=== PATIENT | male | born 1950 | race American Indian/Alaskan Native ===

== ENCOUNTER 2016-10-22 12:33 | Inpatient (IN) | payer MEDICARE ==
[2016-10-22] MEDS ORDERED: NACL 0.9% 1000 ML 1,000 ML IV ONE ×2 (13:47→18:40)
[2016-10-22] MEDS ORDERED: TYLENOL PO STA (13:47)
--- NOTE | 2016-10-22 14:23 | XRay Report ---
AP CHEST: HISTORY: Sepsis The lungs are hyperinflated but clear. No pleural effusion or pneumothorax. Heart and mediastinal structures are within normal limits. A left [id number] terminates in the superior SVC. IMPRESSION: Hyperinflation. No acute process.
[2016-10-22 15:15] LABS: Bacteria,Urine 2+ /HPF (Negative); Bilirubin,Urine NEG (Negative); Blood,Urine MOD (Negative); Ketones,Urine NEG (Negative); Leukocyte Esterase,Urine MOD (Negative); Mucus,Urine FEW /HPF; Nitrite,Urine POS (Negative); Protein,Urine <15 mg/dL mg/dL (Negative)
[2016-10-22 15:47] LABS: Hematocrit 28.1 % (35.5-45.6); Hemoglobin 9.3 gm/dl (11.8-15.2); Mean Corpuscular HGB Conc 33 % (32-34); Mean Corpuscular Hemoglobin 29 pg (28-32); Mean Corpuscular Volume 87 fl (84-94); Platelet Count 414 K/mm3 (140-440); Red Blood Count 3.23 M/mm3 (3.65-5.03); Red Cell Distribution Width 17.7 % (13.2-15.2)
--- NOTE | 2016-10-22 15:47 | Emergency Department Report ---
HPI - General Chief Complaint: Fever Time Seen by Provider: 10/22/16 15:24 - HPI HPI: Room 8 The patient is a 66-year-old male presenting with a chief complaint of "wasn't doing well at home." When asked what made the patient come to the emergency department the patient gives multiple vague complaints which include trouble eating food and having a poor appetite. Patient states food padilla is mild and stings his tongue when he eats. The patient states his loss approximate 14 pounds in one month. Patient denies shortness of breath but admits to a cough that has been present for several months. The patient states cough is productive of clear sputum. The patient was seen by his primary physician last week and started on amoxicillin (patient is unaware of the specific diagnosis given). The patient has a history of leukemia is currently on chemotherapy stating his last round of chemotherapy occurred in August. Patient denies chest pain, abdominal pain, headache, nausea/vomiting, dysuria or hematuria. The patient lives at home with his Location: [see above] Duration: [see above] Quality: [see above] Severity: [see above] Modifying factors: [see above] Context: [see above] Mode of transportation: [not driving] ED Past Medical Hx - Past Medical History Previous Medical History?: Yes Hx Hypertension: Yes (took beta ceasar today; compliant) Additional medical history: leukemia (on chemotherapy) - Surgical History Past Surgical History?: Yes Additional Surgical History: BACK X 3 - Family History Family history: no significant - Social History Smoking Status: Current Every Day Smoker (approximately one pack per day) Substance Use Type: None - Medications Home Medications: Home Medications Medication Instructions Recorded Confirmed Last Taken Type Carvedilol 12.5 mg PO BID 05/28/13 10/22/16 12/28/14 History Finasteride 5 mg PO DAILY 05/28/13 10/22/16 12/27/14 History amLODIPine [Norvasc] 5 mg PO DAILY 05/28/13 10/22/16 12/28/14 History fluPHENAZine (NF) [Prolixin (Nf)] 5 mg PO BID 05/28/13 10/22/16 12/27/14 History Tamsulosin [Flomax] 0.4 mg PO QDAY #30 cap 05/31/16 10/22/16 Unknown Rx Oxycodone HCl/Acetaminophen 1 each PO Q4H PRN 10/22/16 10/22/16 Unknown History [Percocet 10/325 mg] hydrALAZINE [Apresoline] 50 mg PO BID 10/22/16 10/22/16 Unknown History ED Review of Systems ROS: Stated complaint: SEPSIS Other details as noted in HPI Comment: All other systems reviewed and negative Constitutional: fever, other (weight loss) Eyes: denies: eye pain, eye discharge, vision change ENT: other (rhinorrhea) Respiratory: cough Cardiovascular: denies: chest pain, palpitations Endocrine: no symptoms reported Gastrointestinal: denies: abdominal pain, nausea, diarrhea Genitourinary: denies: urgency, dysuria Musculoskeletal: denies: back pain, joint swelling, arthralgia Skin: denies: rash, lesions Neurological: denies: headache, weakness, paresthesias Psychiatric: denies: anxiety, depression Physical Exam - Physical Exam Vital Signs: Vital Signs 10/22/16 10/22/16 10/22/16 13:39 14:17 14:20 Temperature 102.5 F H Pulse Rate 105 H 103 H 105 H Respiratory 20 10 L 16 Rate Blood Pressure 159/97 127/83 O2 Sat by Pulse 98 97 Oximetry 10/22/16 14:30 Temperature 102.5 F H Pulse Rate Respiratory Rate Blood Pressure O2 Sat by Pulse Oximetry Physical Exam: GENERAL: The patient is well-developed well-nourished thin male lying on stretcher not appearing to be in acute distress. [] HEENT: Normocephalic. Atraumatic. Extraocular motions are intact. Patient has moist mucous membranes. Thrush present NECK: Supple. Trachea midline CHEST/LUNGS: Clear to auscultation. There is no respiratory distress noted. HEART/CARDIOVASCULAR: Regular. There is no tachycardia. There is no gallop rub or murmur. ABDOMEN: Abdomen is soft, nontender. Patient has normal bowel sounds. There is no abdominal distention. SKIN: There are blisters to the lateral aspect of the right lower extremity. The most distal blister has been ruptured [place] proximal to are still intact. There is no underlying erythema or evidence of cellulitis. There is no diaphoresis. NEURO: The patient is awake, alert, and oriented. The patient is cooperative. The patient has normal speech MUSCULOSKELETAL: There is no evidence of acute injury. ED Course Vital Signs 10/22/16 10/22/16 10/22/16 13:39 14:17 14:20 Temperature 102.5 F H Pulse Rate 105 H 103 H 105 H Respiratory 20 10 L 16 Rate Blood Pressure 159/97 127/83 O2 Sat by Pulse 98 97 Oximetry 10/22/16 14:30 Temperature 102.5 F H Pulse Rate Respiratory Rate Blood Pressure O2 Sat by Pulse Oximetry ED Medical Decision Making - Lab Data Result diagrams: 10/22/16 15:23 10/22/16 15:23 Laboratory Tests 10/22/16 10/22/16 10/22/16 15:00 15:23 15:23 WBC 2.3 L RBC 3.23 L Hgb 9.3 L Hct 28.1 L MCV 87 MCH 29 MCHC 33 RDW 17.7 H Plt Count 414 Add Manual Diff Complete Total Counted 100 Seg Neuts % (Manual) 71.0 H Band Neutrophils % 0 Lymphocytes % (Manual) 17.0 Reactive Lymphs % (Man) 0 Monocytes % (Manual) 12.0 H Eosinophils % (Manual) 0 Basophils % (Manual) 0 Metamyelocytes % 0 Myelocytes % 0 Promyelocytes % 0 Blast Cells % 0 Nucleated RBC % Not Reportable Seg Neutrophils # Man 1.6 L Band Neutrophils # 0.0 Lymphocytes # (Manual) 0.4 L Abs React Lymphs (Man) 0.0 Monocytes # (Manual) 0.3 Eosinophils # (Manual) 0.0 Basophils # (Manual) 0.0 Metamyelocytes # 0.0 Myelocytes # 0.0 Promyelocytes # 0.0 Blast Cells # 0.0 WBC Morphology Not Reportable Hypersegmented Neuts Not Reportable Hyposegmented Neuts Not Reportable Hypogranular Neuts Not Reportable Smudge Cells Not Reportable Toxic Granulation Not Reportable Toxic Vacuolation Not Reportable Dohle Bodies Not Reportable Pelger-Huet Anomaly Not Reportable J Luis Rods Not Reportable Platelet Estimate Consistent w auto Clumped Platelets Not Reportable Plt Clumps, EDTA Not Reportable Large Platelets 1+ Giant Platelets Rare Platelet Satelliting Not Reportable Plt Morphology Comment Not Reportable RBC Morphology Not Reportable Dimorphic RBCs Not Reportable Polychromasia Not Reportable Hypochromasia Not Reportable Poikilocytosis Not Reportable Anisocytosis 3+ Microcytosis Not Reportable Macrocytosis Not Reportable Spherocytes Not Reportable Pappenheimer Bodies Not Reportable Sickle Cells Not Reportable Target Cells Rare Tear Drop Cells Not Reportable Ovalocytes Few Helmet Cells Not Reportable [place] Bodies Not Reportable [place] Rings Not Reportable Sean Cells Not Reportable Bite Cells Not Reportable Crenated Cell Not Reportable Elliptocytes Not Reportable Acanthocytes (Spur) Not Reportable Rouleaux Not Reportable Hemoglobin C Crystals Not Reportable Schistocytes Rare Malaria parasites Not Reportable Vincent Bodies Not Reportable Hem Pathologist Commnt No PT INR VBG pH Sodium 134 L Potassium 3.7 Chloride 96.3 L Carbon Dioxide 26 Anion Gap 15 BUN 9 Creatinine 0.7 L Estimated GFR > 60 BUN/Creatinine Ratio 12.85 Glucose 96 Lactic Acid Calcium 7.9 L Total Bilirubin 0.6 AST 71 H ALT 55 Alkaline Phosphatase 68 Total Protein 5.3 L Albumin 2.6 L Albumin/Globulin Ratio 1.0 Urine Color Yellow Urine Turbidity Clear Urine pH 7.0 Ur Specific [place] 1.010 Urine Protein <15 mg/dl Urine Glucose (UA) Neg Urine Ketones Neg Urine Blood Mod Urine Nitrite Pos Urine Bilirubin Neg Urine Urobilinogen 2.0 Ur Leukocyte Esterase Mod Urine WBC (Auto) 15.0 H Urine RBC (Auto) 1.0 U Epithel Cells (Auto) < 1.0 Urine Bacteria (Auto) 2+ Urine Mucus Few 10/22/16 10/22/16 10/22/16 15:23 15:32 15:32 WBC RBC Hgb Hct MCV MCH MCHC RDW Plt Count Add Manual Diff Total Counted Seg Neuts % (Manual) Band Neutrophils % Lymphocytes % (Manual) Reactive Lymphs % (Man) Monocytes % (Manual) Eosinophils % (Manual) Basophils % (Manual) Metamyelocytes % Myelocytes % Promyelocytes % Blast Cells % Nucleated RBC % Seg Neutrophils # Man Band Neutrophils # Lymphocytes # (Manual) Abs React Lymphs (Man) Monocytes # (Manual) Eosinophils # (Manual) Basophils # (Manual) Metamyelocytes # Myelocytes # Promyelocytes # Blast Cells # WBC Morphology Hypersegmented Neuts Hyposegmented Neuts Hypogranular Neuts Smudge Cells Toxic Granulation Toxic Vacuolation Dohle Bodies Pelger-Huet Anomaly J Luis Rods Platelet Estimate Clumped Platelets Plt Clumps, EDTA Large Platelets Giant Platelets Platelet Satelliting Plt Morphology Comment RBC Morphology Dimorphic RBCs Polychromasia Hypochromasia Poikilocytosis Anisocytosis Microcytosis Macrocytosis Spherocytes Pappenheimer Bodies Sickle Cells Target Cells Tear Drop Cells Ovalocytes Helmet Cells [place] Bodies [place] Rings Sean Cells Bite Cells Crenated Cell Elliptocytes Acanthocytes (Spur) Rouleaux Hemoglobin C Crystals Schistocytes Malaria parasites Vincent Bodies Hem Pathologist Commnt PT 14.1 INR 1.10 VBG pH 7.417 Sodium Potassium Chloride Carbon Dioxide Anion Gap BUN Creatinine Estimated GFR BUN/Creatinine Ratio Glucose Lactic Acid 1.0 Calcium Total Bilirubin AST ALT Alkaline Phosphatase Total Protein Albumin Albumin/Globulin Ratio Urine Color Urine Turbidity Urine pH Ur Specific [place] Urine Protein Urine Glucose (UA) Urine Ketones Urine Blood Urine Nitrite Urine Bilirubin Urine Urobilinogen Ur Leukocyte Esterase Urine WBC (Auto) Urine RBC (Auto) U Epithel Cells (Auto) Urine Bacteria (Auto) Urine Mucus - EKG Data -: EKG Interpreted by Me EKG shows normal: sinus rhythm Rate: normal - EKG Data When compared to previous EKG there are: previous EKG unavailable - Radiology Data Radiology results: image reviewed (chest x-ray) interpreted by me: Chest x-ray-no focal infiltrates, no pneumothorax - Differential Diagnosis neutropenic fever, pneumonia, influenza, UTI Critical care attestation.: If time is entered above; I have spent that time in minutes in the direct care of this critically ill patient, excluding procedure time. ED Disposition Clinical Impression: Leukopenia, Fever, Oral candidiasis, UTI (urinary tract infection) Disposition: OP ADMITTED IP TO THIS HOSP Is pt being admited?: Yes Does the pt Need Aspirin: Yes Condition: Serious Referrals: PRIMARY CARE, [Primary Care Provider] - 3-5 Days Time of Disposition: 16:45 (hospitalist paged)
[2016-10-22 15:48] LABS: White Blood Count 2.3 K/mm3 (4.5-11.0)
[2016-10-22 15:59] LABS: INR 1.1 (0.87-1.13)
--- NOTE | 2016-10-22 16:02 | Admit Criteria Form ---
Admission Criteria Documentation: FEBRILE ILLNESS, WITHOUT FOCAL INFECTION Clinical Indications for Admission to Inpatient Care (Place 'X' for any and all applicable criteria): Admission is indicated for ANY ONE of the following (1)(2)(3): [ ] I. Bacteremia [ ]II. Suspected or identified specific infection requiring hospitalization (eg, meningitis, endocarditis) [ ]III. Hemodynamic instability [ ]IV. Altered mental status [ ]V. Failure or unavailability of outpatient antimicrobial treatment [ ]. Hypoxemia [ ]VII. Seizures [X ]VIII. High-risk febrile neutropenia [ ]IX. Need for parenteral antibiotic in patient who is likely to abuse vascular access device (eg, injection drug user) [A](7) [ ]X. Temperature greater than 104.9 degrees F (40.5 degrees C) (oral) [ ]XI. Inpatient admission required rather than observation care because of ANY ONE of the following: [ ]a) Specific infection identified that is too severe for outpatient treatment or observation care trial [ ]b) Metabolic disorder (eg, hypoglycemia, hyperglycemia, metabolic acidosis) that is severe or persistent [ ]c) Temperature greater than 103.1 degrees F (39.5 degrees C) ( oral) that is not responsive to observation care treatment [ ]d) IV fluid to replace significant ongoing (eg, for over 24 hours) losses (> 3 L/m2 per day) [ ]e) Supplemental oxygen or respiratory treatments for over 24 hours that is performable only in acute inpatient setting [ ]f) Parenteral nutrition regimen need that must be implemented on inpatient basis [ ]g) Strict or protective (eg, laminar flow) isolation [ ]h) Other condition, treatment or monitoring requiring inpatient admission Extended stay beyond goal length of stay may be needed for(1)(3) [ ]a) Sepsis or septic shock(22) [ ]b) Positive blood cultures [ ]c) Insufficient oral intake [ ]d) High-risk febrile neutropenia(29)(30) [ ]e) Continued fever and clinical instability [ ]f) Clinically active comorbid illness (e.g,heart failure, renal failure , diabetes) The original [facility] content created by [facility] has been revised. The portions of the content which have been revised are identified through the use of italic text or in bold, and Jennifer [facility] has neither reviewed nor approved the modified material. All other unmodified content is copyright [facility]. Please see references footnoted in the original [facility] edition 2016 Admission Criteria Met: Yes
[2016-10-22 16:04] LABS: Blood Urea Nitrogen 9 mg/dL (9-20); Carbon Dioxide 26 mmol/L (22-30)
[2016-10-22 16:05] LABS: Alanine Aminotransferase 55 units/L (7-56); Albumin 2.6 g/dL (3.9-5); Alkaline Phosphatase 68 units/L (35-129); BUN/Creatinine Ratio 12.85; Bilirubin,Total 0.6 mg/dL (0.1-1.2); Calcium 7.9 mg/dL (8.4-10.2); Chloride 96.3 mmol/L (98-107); Glucose 96 mg/dL (75-100); Potassium 3.7 mmol/L (3.6-5.0); Sodium 134 mmol/L (137-145); Total Protein 5.3 g/dL (6.3-8.2)
[2016-10-22 16:08] LABS: Anion Gap 15 mmol/L
[2016-10-22 16:33] LABS: Basophils % (Manual) 0 % (0.0-1.8); Blastocytes % (Manual) 0 %; Eosinophils % (Manual) 0 % (0.0-4.3)
[2016-10-22 16:34] LABS: Large Platelets 1+; Platelet Estimate Consistent w Auto
[2016-10-22 16:35] LABS: Giant Platelets Rare
[2016-10-22 16:36] LABS: Anisocytosis 3+; Ovalocytes Few; Schistocytes Rare; Target Cells Rare
[2016-10-22 16:37] LABS: Diff Status Complete
[2016-10-22] MEDS ORDERED: MAXIPIME/NS 2 GM/100 ML 100 ML IV ONE (16:37)
--- NOTE | 2016-10-22 18:28 | History and Physical Report ---
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 He also complains of difficulty swallowing. He he has c/o of bilateral leg swelling and inability to walk. I d/w Dr. Pedersen personally, Last chemotherapy was 08/23/2016 with Bendamustine, Rituxan and he had complete remission. On Sep 20, 2016 his WBC was 3.4 and hgb 12.6 with plt of 419. Patient has a chronic indwelling padgett, review of prior records, 12/28/[address] Lomax 1. Gross hematuria, 2. Right ureter stone, 7 mm. 3. Urethral stricture. Operative procedure: Cystoscopy bilateral retrograde pyelogram, right ureteroscopic, basket stone extraction, double-J stent placement and ureteral dilatation Past History Past Medical History: other (as hpi) Past Surgical History: Other (multiple urologic intervention, left chest wall port ) Medications and Allergies Allergies Allergy/AdvReac Type Severity Reaction Status Date / Time morphine Allergy Shortness Verified 10/22/16 13:39 of Breath nalbuphine HCl [From Nubain] Allergy Shortness Verified 10/22/16 13:39 of Breath PEANUTS Allergy Severe Shortness Uncoded 10/22/16 13:39 of Breath Home Medications Medication Instructions Recorded Confirmed Last Taken Type Carvedilol 12.5 mg PO BID 05/28/13 10/22/16 12/28/14 History Finasteride 5 mg PO DAILY 05/28/13 10/22/16 12/27/14 History amLODIPine [Norvasc] 5 mg PO DAILY 05/28/13 10/22/16 12/28/14 History fluPHENAZine (NF) [Prolixin (Nf)] 5 mg PO BID 05/28/13 10/22/16 12/27/14 History Tamsulosin [Flomax] 0.4 mg PO QDAY #30 cap 05/31/16 10/22/16 Unknown Rx Oxycodone HCl/Acetaminophen 1 each PO Q4H PRN 10/22/16 10/22/16 Unknown History [Percocet 10/325 mg] hydrALAZINE [Apresoline] 50 mg PO BID 10/22/16 10/22/16 Unknown History Review of Systems All systems: negative (as HPI and all other ROS reviewed and negative.) Exam - Physical Exam Narrative exam: GEN: WDWN, NAD, AWAKE, ALERT, ORIENTATED HEENT: NCAT, PERRL, EOMI, OP CLEAR NECK: SUPPLE, NO THYROMEGALY, NO JVD, NO LAD CVS: RRR, NORMAL S1S2 LUNGS/CHEST: CTA B, NORMAL CHEST EXPANSION B, GOOD AIR ENTRY B ABD: SOFT NTND, GBS, NO REBOUND OR GUARDING EXT/SKIN: NO SIGNIFICANT EDEMA OR RASH MSK: FROM X 4 EXTREMITIES NEURO: CN 2-12 GROSSLY INTACT, NO FOCAL DEFICITS PSY: CALM - Constitutional Vitals: Temp Pulse Resp BP Pulse Ox 98.7 F 83 8 L 117/72 93 10/22/16 16:34 10/22/16 17:00 10/22/16 16:00 10/22/16 17:00 10/22/16 17:00 Results - Labs CBC & Chem 7: 10/22/16 15:23 10/22/16 15:23 Labs: Abnormal lab results 10/22/16 10/22/16 10/22/16 Range/Units 15:00 15:23 15:23 WBC 2.3 L (4.5-11.0) K/mm3 RBC 3.23 L (3.65-5.03) M/mm3 Hgb 9.3 L (11.8-15.2) gm/dl Hct 28.1 L (35.5-45.6) % RDW 17.7 H (13.2-15.2) % Seg Neuts % (Manual) 71.0 H (40.0-70.0) % Monocytes % (Manual) 12.0 H (0.0-7.3) % Seg Neutrophils # Man 1.6 L (1.8-7.7) K/mm3 Lymphocytes # (Manual) 0.4 L (1.2-5.4) K/mm3 Sodium 134 L (137-145) mmol/L Chloride 96.3 L (98-107) mmol/L Creatinine 0.7 L (0.8-1.5) mg/dL Calcium 7.9 L (8.4-10.2) mg/dL AST 71 H (5-40) units/L Total Protein 5.3 L (6.3-8.2) g/dL Albumin 2.6 L (3.9-5) g/dL Urine WBC (Auto) 15.0 H (0.0-6.0) /HPF Assessment and Plan Patient is 66 yo man from home with a history of CLL under the care of Dr. Pedersen, last chemotherapy was in August 2016 who presents to [facility] ED with multiple somatic complaints including persistent worsening fevers that started yesterday associated with chills, anorexia. He also complains of difficulty swallowing. He he has c/o of bilateral leg swelling and inability to walk. I d/w Dr. Pedersen personally, Last chemotherapy was 08/23/2016 with Bendamustine, Rituxan and he had complete remission. On Sep 20, 2016 his WBC was 3.4 and hgb 12.6 with plt of 419. Patient has a chronic indwelling padgett, review of prior records, 12/28/[address] Lomax 1. Gross hematuria, 2. Right ureter stone, 7 mm. 3. Urethral stricture. Operative procedure: Cystoscopy bilateral retrograde pyelogram, right ureteroscopic, basket stone extraction, double-J stent placement and ureteral dilatation 1. Sepsis most likely due to UTI with functional abnormalities as above and chronic indwelling Padgett, treat aggressively due to an immune compromised state 2. Leukopenia: Consult hematology oncology Dr. Reyes who is Dr. Pedersen partner 3. Severe protein calorie malnutrition: Dietitian consult 4. Thrush: Diflucan 5. Left chest wall port without obvious signs of infection 6. DVT prophylaxis: Subcutaneous Lovenox 7. GI prophylaxis: Pepcid Full code Disposition: Inpatient care
[2016-10-22] MEDS ORDERED: ZOFRAN IV PRN (18:35)
[2016-10-22] MEDS ORDERED: TYLENOL PO PRN (18:35)
[2016-10-22] MEDS ORDERED: NACL 0.9% 1000 ML 1,000 ML ONE (18:36)
[2016-10-22] MEDS: ROXICODONE PO PRN (19:15)
[2016-10-22] MEDS: PERCOCET 5/325 PO PRN (19:15)
[2016-10-22] MEDS ORDERED: ZOSYN/NS 4.5GM/100ML 100 ML IV ONE (21:29)
[2016-10-22] MEDS: ZOSYN/NS 4.5GM/100ML 100 ML IV SCH (21:30)
[2016-10-23] MEDS: DIFLUCAN/NS 100 MG/50 ML 50 ML IV SCH ×2 (00:17→22:00)
[2016-10-23] MEDS: PERCOCET 5/325 PO PRN ×3 (00:19→21:35)
[2016-10-23] MEDS: ROXICODONE PO PRN ×3 (00:20→21:35)
[2016-10-23] MEDS: NACL 0.9% 1000 ML 1,000 ML IV SCH ×2 (00:38→16:00)
[2016-10-23] MEDS ORDERED: NON-FORMULARY (Oxycodone Hcl/Acetaminophen [Percocet 10/325 Mg] 1 EACH) PO PRN (13:50)
[2016-10-23] MEDS ORDERED: FLUPHENAZINE 5 MG PO SCH (14:00)
[2016-10-23] MEDS: PEPCID PO SCH (14:10)
[2016-10-23] MEDS: ZOSYN/NS 4.5GM/100ML 100 ML IV SCH ×2 (14:10→22:00)
[2016-10-23] MEDS ORDERED: CHLORASEPTIC MM PRN (15:18)
[2016-10-23] MEDS: PROSCAR PO SCH (16:00)
[2016-10-23] MEDS: FLOMAX PO SCH (16:00)
[2016-10-23] MEDS: PROLIXIN HCL PO SCH (16:00)
[2016-10-23] MEDS: COREG PO SCH (17:00)
--- NOTE | 2016-10-23 18:34 | Consultation ---
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 Presented with extensive adenopathy, anemia, and thrombocytopenia, as well as constitutional symptoms of fevers, night sweats, and weight loss. He received 4 cycles of bendamustine and rituximab, latest given on Aug 222015. He did develop some pancytopenia with chemo, but on the other side his adenopathy and thrombocytopenia resolved, and his constitutional symptoms resolved. He now comes with a 2-day history of fevers and leg edema with large fluid blebs, severe generalized weakness, and oral pain. He has had several falls due to weakness. CXR showed on acute infiltrates. Urinalysis shows 15 WBC/HPF, positive nitrites, and positive leukocyte esterase. Patient denies dysuria or hematuria. CBC shows WBC 2.3 with ANC 1.6; platelet count is normal, but hemoglobin is low at 9.3 g/dL. MCV is 87, RDW 17.7%. Chemistries remarkable for creatinine of 0.7 g/dL, calcium 7.9 mg/dL, albumin 2.6 g/dL (corrected calcium level 9.02 mg/dL). AST is elevated at 71 (<2 x ULN). Past History Past Medical History: hypertension, other (Lumbar radiculopathy, DDD, BPH, kidney stones, urethral stricture) Past Surgical History: Other (multiple urologic interventions, cervical spine fusino February 2008, lumbar spine surgey, left chest wall port ) Social history: smoking Family history: cancer (multiple relatives, does not know what type of cancer) Medications and Allergies Allergies Allergy/AdvReac Type Severity Reaction Status Date / Time morphine Allergy Shortness Verified 10/22/16 13:39 of Breath nalbuphine HCl [From Nubain] Allergy Shortness Verified 10/22/16 13:39 of Breath PEANUTS Allergy Severe Shortness Uncoded 10/22/16 13:39 of Breath Home Medications Medication Instructions Recorded Confirmed Last Taken Type Carvedilol 12.5 mg PO BID 05/28/13 10/22/16 12/28/14 History Finasteride 5 mg PO DAILY 05/28/13 10/22/16 12/27/14 History amLODIPine [Norvasc] 5 mg PO DAILY 05/28/13 10/22/16 12/28/14 History fluPHENAZine (NF) [Prolixin (Nf)] 5 mg PO BID 05/28/13 10/22/16 12/27/14 History Tamsulosin [Flomax] 0.4 mg PO QDAY #30 cap 05/31/16 10/22/16 Unknown Rx Oxycodone HCl/Acetaminophen 1 each PO Q4H PRN 10/22/16 10/22/16 Unknown History [Percocet 10/325 mg] hydrALAZINE [Apresoline] 50 mg PO BID 10/22/16 10/22/16 Unknown History Active Meds: Active Medications Acetaminophen (Tylenol) 650 mg PO Q6H PRN PRN Reason: Non Cardiac Pain or Temp>100.5 Carvedilol (Coreg) 12.5 mg PO BID [facility] Last Admin: 10/23/16 17:00 Dose: 12.5 mg Famotidine (Pepcid) 20 mg PO QDAY [facility] Last Admin: 10/23/16 14:10 Dose: Not Given Finasteride (Proscar) 5 mg PO DAILY [facility] Last Admin: 10/23/16 16:00 Dose: 5 mg Fluphenazine HCl (Prolixin Hcl) 5 mg PO BID [facility] Last Admin: 10/23/16 16:00 Dose: 5 mg Piperacillin Sod/Tazobactam Sod (Zosyn/Ns 4.5gm/100ml) 100 mls @ 200 mls/hr IV Q8H [facility] PRN Reason: Protocol Last Admin: 10/23/16 14:10 Dose: Not Given Sodium Chloride (Nacl 0.9% 1000 Ml) 1,000 mls @ 100 mls/hr IV DIRECT [facility] Last Admin: 10/23/16 16:00 Dose: 100 mls/hr Fluconazole (Diflucan/Ns 100 Mg/50 Ml) 50 mls @ 50 mls/hr IV Q24H [facility] Last Admin: 10/23/16 00:17 Dose: 50 mls/hr Oxycodone HCl (Roxicodone) 5 mg PO Q4H PRN PRN Reason: Pain Last Admin: 10/23/16 16:00 Dose: 5 mg Oxycodone/Acetaminophen (Percocet 5/325) 1 tab PO Q4H PRN PRN Reason: Pain, Moderate (4-6) Last Admin: 10/23/16 16:00 Dose: 1 tab Phenol (Chloraseptic) 1 spray MM PRN PRN PRN Reason: Sore Throat Last Admin: 10/23/16 16:10 Dose: 1 spray Tamsulosin HCl (Flomax) 0.4 mg PO QDAY [facility] Last Admin: 10/23/16 16:00 Dose: 0.4 mg Review of Systems All systems: negative Constitutional: fever, anorexia, fatigue, malaise Ears, nose, mouth and throat: dysphagia, other (dry mouth) Cardiovascular: dyspnea on exertion, leg edema (severe, R>L, with large fluid blebs (one has broken)) 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 Absent: scleral icterus ENT: thrush (mild), other (ptosis R eyelid, chronic) - Neck Neck: Present: supple, normal ROM. Absent: masses or JVD - Respiratory Respiratory effort: normal Respiratory: bilateral: CTA - Cardiovascular Rhythm: regular Heart Sounds: Present: S1 & S2. Absent: gallop - Extremities Extremities: no ischemia Extremity abnormal: edema (Large fluid filled blebs in RLE) - Abdominal General gastrointestinal: Present: soft, non-tender, non-distended, normal bowel sounds. Absent: hepatomegaly, splenomegaly - Integumentary Integumentary: Present: warm, dry, rash (multiple excoriations BLE due to falls) - Musculoskeletal Musculoskeletal: generalized weakness - Psychiatric Psychiatric: cooperative Results - Labs CBC & Chem 7: 10/22/16 15:23 10/22/16 15:23 - Imaging and Cardiology Chest x-ray: report reviewed Assessment and Plan - Patient Problems (1) Chronic lymphocytic leukemia (CLL), B-cell Current Visit: Yes Status: Chronic Qualifiers: Leukemia Active/Remission status: in remission Qualified Code(s): C91.11 - Chronic lymphocytic leukemia of B-cell type in remission Plan to address problem: Patient appears to be in remission. No treatment indicated at this time. Recommend outpatient bone marrrow biopsy to assess response to recently completed chemotherapy (2) Fever Current Visit: Yes Status: Acute Qualifiers: Fever type: unspecified Encounter type: E Qualified Code(s): R50.9 - Fever, unspecified Plan to address problem: Most likely due to UTI. R/o immunosupression (hypogammaglobulinemia is frequently seen in CLL). Check IgG level. IVIG if IgG <500 mg/dL. (3) Leukopenia Current Visit: Yes Status: Chronic Qualifiers: Leukopenia type: L Neutropenia type: secondary to cancer chemotherapy Qualified Code(s): D70.1 - Agranulocytosis secondary to cancer chemotherapy Plan to address problem: Patient has mild, stable neutropenia. He does not need growth factors. Prolonged myelosupression is commonly seen with bendamustine. He may also have bone marrow suppression from his phenothiazine agent. Continue monitoring. (4) Oral candidiasis Current Visit: Yes Status: Acute Plan to address problem: Already on fluconazole (5) Anemia Current Visit: Yes Status: Chronic Qualifiers: Anemia type: bone marrow failure Iron deficiency anemia type: I Vitamin B12 deficiency anemia type: V Folate deficiency anemia type: F Bone marrow failure anemia type: pancytopenia, antineoplastic chemotherapy-induced Hemolytic anemia type: H Other causes of anemia: O Qualified Code(s): D61.810 - Antineoplastic chemotherapy induced pancytopenia Plan to address problem: Patient presented with stage IV CLL (anemia and thrombocytopenia) but appears to have achieved hematologic remission. Will check for other causes including anemia of CKD, hemolysis (AIHA can be seen in CLL), and Fe/folate/B12 deficiency. (6) Bilateral lower extremity edema Current Visit: Yes Status: Acute Plan to address problem: I am not clear about the reason for this. His albumin is not so low as to cause anasarca, and his renal function is very good. Consider Echo, cardiology consult.
[2016-10-23 21:40] LABS: Reticulocyte % 1.81 % (0.78-2.58)
[2016-10-23 21:41] LABS: Hematocrit 30.1 % (35.5-45.6); Hemoglobin 9.7 gm/dl (11.8-15.2); Mean Corpuscular HGB Conc 32 % (32-34); Mean Corpuscular Hemoglobin 28 pg (28-32); Mean Corpuscular Volume 88 fl (84-94); Platelet Count 421 K/mm3 (140-440); Red Blood Count 3.41 M/mm3 (3.65-5.03); Red Cell Distribution Width 17.9 % (13.2-15.2); White Blood Count 2.9 K/mm3 (4.5-11.0)
[2016-10-23 22:22] LABS: Anion Gap 21 mmol/L; BUN/Creatinine Ratio 11.42; Blood Urea Nitrogen 8 mg/dL (9-20); Carbon Dioxide 22 mmol/L (22-30); Chloride 98.5 mmol/L (98-107); Glucose 100 mg/dL (75-100); Potassium 3.7 mmol/L (3.6-5.0); Sodium 138 mmol/L (137-145)
[2016-10-23 22:25] LABS: Iron 18 ug/dL (49-181); Total Iron Binding Capacity 163 mcg/dL (250-450)
[2016-10-23] MEDS: HABITROL TD SCH (23:58)
[2016-10-24] MEDS: NACL 0.9% 1000 ML 1,000 ML IV SCH ×2 (00:01→14:56)
[2016-10-24] MEDS: PROLIXIN HCL PO SCH ×3 (00:03→22:04)
[2016-10-24] MEDS: COREG PO SCH ×3 (00:03→22:04)
[2016-10-24] MEDS: ZOSYN/NS 4.5GM/100ML 100 ML IV SCH ×2 (04:16→14:54)
[2016-10-24 07:41] LABS: Hematocrit 26.4 % (35.5-45.6); Hemoglobin 8.8 gm/dl (11.8-15.2); Mean Corpuscular HGB Conc 33 % (32-34); Mean Corpuscular Hemoglobin 28 pg (28-32); Mean Corpuscular Volume 86 fl (84-94); Red Blood Count 3.09 M/mm3 (3.65-5.03); Red Cell Distribution Width 17.8 % (13.2-15.2)
[2016-10-24 07:50] LABS: Platelet Count 410 K/mm3 (140-440)
[2016-10-24 07:51] LABS: White Blood Count 2.1 K/mm3 (4.5-11.0)
[2016-10-24 08:03] LABS: Anion Gap 15 mmol/L; BUN/Creatinine Ratio 8.57; Blood Urea Nitrogen 6 mg/dL (9-20); Calcium 7.8 mg/dL (8.4-10.2); Carbon Dioxide 26 mmol/L (22-30); Chloride 99.6 mmol/L (98-107); Glucose 93 mg/dL (75-100); Potassium 3.9 mmol/L (3.6-5.0); Sodium 137 mmol/L (137-145)
[2016-10-24] MEDS: FLOMAX PO SCH (10:27)
[2016-10-24] MEDS: PEPCID PO SCH (10:28)
[2016-10-24] MEDS: PROSCAR PO SCH (10:29)
--- NOTE | 2016-10-24 11:02 | Progress Note ---
Assessment and Plan Assessment and plan: Complicated urinary tract infection. He has had a Merino catheter in for about 1 week. Continue Zosyn. Urine cultures show Klebsiella pneumonia response to Zosyn. Consulted infectious disease physician Sepsis secondary to urinary tract infection. Continue Zosyn History of CLL. Undergoing treatment by oncologist. Hypertension. Blood pressure stable Oral candidiasis. On Diflucan DVT prophylaxis Full code status Leg ulcer, blisters . Wound care nurse consulted. History Interval history: Feels better Hospitalist Physical - Physical exam Narrative exam: Gen appearance: not in acute distress, HEENT: Normocephalic, atraumatic Neck : supple, no JVD Lungs: Clear to auscultation bilaterally, no crackles, no wheezes. Heart : S1 and S2 regular, no murmurs rubs or gallop, Abdomen: soft non-tender, non-distended, normal bowel sounds Extremities: No edema no clubbing or cyanosis, leg blisters and ulcer Neuro :awake alert oriented, no focal signs Psych :appropriate mood - Constitutional Vitals: Temp Pulse Resp BP Pulse Ox 99.0 F 107 H 20 133/86 98 10/24/16 08:45 10/24/16 08:45 10/24/16 08:45 10/24/16 08:45 10/24/16 08:45 General appearance: Present: mild distress, well-nourished, other (chronically ill looking) Results - Labs CBC & Chem 7: 10/24/16 07:07 10/24/16 07:07 Labs: Laboratory Last Values WBC 2.1 K/mm3 (4.5-11.0) L 10/24/16 07:07 RBC 3.09 M/mm3 (3.65-5.03) L 10/24/16 07:07 Hgb 8.8 gm/dl (11.8-15.2) L 10/24/16 07:07 Hct 26.4 % (35.5-45.6) L 10/24/16 07:07 MCV 86 fl (84-94) 10/24/16 07:07 MCH 28 pg (28-32) 10/24/16 07:07 MCHC 33 % (32-34) 10/24/16 07:07 RDW 17.8 % (13.2-15.2) H 10/24/16 07:07 Plt Count 410 K/mm3 (140-440) 10/24/16 07:07 Add Manual Diff Complete 10/22/16 15:23 Total Counted 100 10/22/16 15:23 Seg Neuts % (Manual) 71.0 % (40.0-70.0) H 10/22/16 15:23 Band Neutrophils % 0 % 10/22/16 15:23 Lymphocytes % (Manual) 17.0 % (13.4-35.0) 10/22/16 15:23 Reactive Lymphs % (Man) 0 % 10/22/16 15:23 Monocytes % (Manual) 12.0 % (0.0-7.3) H 10/22/16 15:23 Eosinophils % (Manual) 0 % (0.0-4.3) 10/22/16 15:23 Basophils % (Manual) 0 % (0.0-1.8) 10/22/16 15:23 Metamyelocytes % 0 % 10/22/16 15:23 Myelocytes % 0 % 10/22/16 15:23 Promyelocytes % 0 % 10/22/16 15:23 Blast Cells % 0 % 10/22/16 15:23 Nucleated RBC % Not Reportable 10/22/16 15:23 Seg Neutrophils # Man 1.6 K/mm3 (1.8-7.7) L 10/22/16 15:23 Band Neutrophils # 0.0 K/mm3 10/22/16 15:23 Lymphocytes # (Manual) 0.4 K/mm3 (1.2-5.4) L 10/22/16 15:23 Abs React Lymphs (Man) 0.0 K/mm3 10/22/16 15:23 Monocytes # (Manual) 0.3 K/mm3 (0.0-0.8) 10/22/16 15:23 Eosinophils # (Manual) 0.0 K/mm3 (0.0-0.4) 10/22/16 15:23 Basophils # (Manual) 0.0 K/mm3 (0.0-0.1) 10/22/16 15:23 Metamyelocytes # 0.0 K/mm3 10/22/16 15:23 Myelocytes # 0.0 K/mm3 10/22/16 15:23 Promyelocytes # 0.0 K/mm3 10/22/16 15:23 Blast Cells # 0.0 K/mm3 10/22/16 15:23 WBC Morphology Not Reportable 10/22/16 15:23 Hypersegmented Neuts Not Reportable 10/22/16 15:23 Hyposegmented Neuts Not Reportable 10/22/16 15:23 Hypogranular Neuts Not Reportable 10/22/16 15:23 Smudge Cells Not Reportable 10/22/16 15:23 Toxic Granulation Not Reportable 10/22/16 15:23 Toxic Vacuolation Not Reportable 10/22/16 15:23 Dohle Bodies Not Reportable 10/22/16 15:23 Pelger-Huet Anomaly Not Reportable 10/22/16 15:23 J Luis Rods Not Reportable 10/22/16 15:23 Platelet Estimate Consistent w auto 10/22/16 15:23 Clumped Platelets Not Reportable 10/22/16 15:23 Plt Clumps, EDTA Not Reportable 10/22/16 15:23 Large Platelets 1+ 10/22/16 15:23 Giant Platelets Rare 10/22/16 15:23 Platelet Satelliting Not Reportable 10/22/16 15:23 Plt Morphology Comment Not Reportable 10/22/16 15:23 RBC Morphology Not Reportable 10/22/16 15:23 Dimorphic RBCs Not Reportable 10/22/16 15:23 Polychromasia Not Reportable 10/22/16 15:23 Hypochromasia Not Reportable 10/22/16 15:23 Poikilocytosis Not Reportable 10/22/16 15:23 Anisocytosis 3+ 10/22/16 15:23 Microcytosis Not Reportable 10/22/16 15:23 Macrocytosis Not Reportable 10/22/16 15:23 Spherocytes Not Reportable 10/22/16 15:23 Pappenheimer Bodies Not Reportable 10/22/16 15:23 Sickle Cells Not Reportable 10/22/16 15:23 Target Cells Rare 10/22/16 15:23 Tear Drop Cells Not Reportable 10/22/16 15:23 Ovalocytes Few 10/22/16 15:23 Helmet Cells Not Reportable 10/22/16 15:23 Arias-Mosheim Bodies Not Reportable 10/22/16 15:23 Shepp[place] Rings Not Reportable 10/22/16 15:23 Sean Cells Not Reportable 10/22/16 15:23 Bite Cells Not Reportable 10/22/16 15:23 Crenated Cell Not Reportable 10/22/16 15:23 Elliptocytes Not Reportable 10/22/16 15:23 Acanthocytes (Spur) Not Reportable 10/22/16 15:23 Rouleaux Not Reportable 10/22/16 15:23 Hemoglobin C Crystals Not Reportable 10/22/16 15:23 Schistocytes Rare 10/22/16 15:23 Malaria parasites Not Reportable 10/22/16 15:23 Percent Retic 1.81 % (0.78-2.58) 10/23/16 21:29 Vincent Bodies Not Reportable 10/22/16 15:23 Hem Pathologist Commnt No 10/22/16 15:23 PT 14.1 Sec. (12.2-14.9) 10/22/16 15:32 INR 1.10 (0.87-1.13) 10/22/16 15:32 VBG pH 7.417 (7.320-7.420) 10/22/16 15:32 Sodium 137 mmol/L (137-145) 10/24/16 07:07 Potassium 3.9 mmol/L (3.6-5.0) 10/24/16 07:07 Chloride 99.6 mmol/L (98-107) 10/24/16 07:07 Carbon Dioxide 26 mmol/L (22-30) 10/24/16 07:07 Anion Gap 15 mmol/L 10/24/16 07:07 BUN 6 mg/dL (9-20) L 10/24/16 07:07 Creatinine 0.7 mg/dL (0.8-1.5) L 10/24/16 07:07 Estimated GFR > 60 ml/min 10/24/16 07:07 BUN/Creatinine Ratio 8.57 % 10/24/16 07:07 Glucose 93 mg/dL (75-100) 10/24/16 07:07 Lactic Acid 1.0 mmol/L (0.7-2.0) 10/22/16 16:41 Calcium 7.8 mg/dL (8.4-10.2) L 10/24/16 07:07 Iron 18 ug/dL (49-181) L 10/23/16 21:29 TIBC 163 mcg/dL (250-450) L 10/23/16 21:29 Ferritin 1321.0 ng/mL (13.0-400.0) H 10/23/16 21:29 Total Bilirubin 0.6 mg/dL (0.1-1.2) 10/22/16 15:23 AST 71 units/L (5-40) H 10/22/16 15:23 ALT 55 units/L (7-56) 10/22/16 15: Alkaline Phosphatase 68 units/L (35-129) 10/22/16 15:23 Total Protein 5.3 g/dL (6.3-8.2) L 10/22/16 15: Albumin 2.6 g/dL (3.9-5) L 10/22/16 15: Albumin/Globulin Ratio 1.0 % 10/22/16 15: Vitamin B12 1098 pg/mL (211-911) H 10/23/16 21: Folate 6.83 ng/mL (7.3-26.0) L 10/23/16 21:29 Urine Color Yellow (Yellow) 10/22/16 15:00 Urine Turbidity Clear (Clear) 10/22/16 15:00 Urine pH 7.0 (5.0-7.0) 10/22/16 15:00 Ur Specific [place] 1.010 (1.003-1.030) 10/22/16 15:00 Urine Protein <15 mg/dl mg/dL (Negative) 10/22/16 15:00 Urine Glucose (UA) Neg mg/dL (Negative) 10/22/16 15:00 Urine Ketones Neg mg/dL (Negative) 10/22/16 15:00 Urine Blood Mod (Negative) 10/22/16 15:00 Urine Nitrite Pos (Negative) 10/22/16 15:00 Urine Bilirubin Neg (Negative) 10/22/16 15:00 Urine Urobilinogen 2.0 mg/dL (<2.0) 10/22/16 15:00 Ur Leukocyte Esterase Mod (Negative) 10/22/16 15:00 Urine WBC (Auto) 15.0 /HPF (0.0-6.0) H 10/22/16 15:00 Urine RBC (Auto) 1.0 /HPF (0.0-6.0) 10/22/16 15:00 U Epithel Cells (Auto) < 1.0 /HPF (0-13.0) 10/22/16 15:00 Urine Bacteria (Auto) 2+ /HPF (Negative) 10/22/16 15:00 Urine Mucus Few /HPF 10/22/16 15:00 Direct Antiglob Test Negative 10/23/16 21:29 ROBBI, Poly Interpret Negative 10/23/16 21:29
--- NOTE | 2016-10-24 12:27 | Consultation ---
History of Present Illness - Reason for Consult Consult date: 10/24/16 UTI - History of Present Illness Mr Gill is a 66 y/o AA male who is followed with a known history of hypertension , CLL on previous chemotherapy, indwelling port, chronic indwelling Merino catheter, and history of ureteral stones who presents for admission to with fever, chills, malaise and anorexia. He is seen with a low-grade fever, an active urinary sediment, urine cultures positive for Klebsiella pneumoniae, and mild neutropenia. The patient is a poor historian. He is followed by Dr. Pedersen with last chemotherapy for CLL ( Bendamustine, Rituxin) given on 08/23/16. He apparently was told that he was in remission. The patient otherwise has an indwelling left chest wall port. is followed by Dr. Lomax with a known history of nephrolithiasis. He underwent, in December 2014, cystoscopy with right ureteral stent placement and right ureteral stone basket extraction. The denies any recent urinary difficulties known to him. As stated he does have a indwelling Merino catheter at home but was uncertain how long this is been in place and how recently it has been changed. Currently he has had low-grade fever in the hospital to 100.8. Admission CBC includes a white count of 2300 with 71% neutrophils. His urine showed 15 WBCs with 1 RBCs. Nitrite was positive with evidence of 2+ bacteriuria. Urine culture is growing a sensitive Klebsiella pneumoniae. Blood cultures are sterile. The patient is now seen for further ID recommendations. Past History Past Medical History: hypertension, other (Lumbar radiculopathy, DDD, BPH, kidney stones, urethral stricture) Past Surgical History: Other (multiple urologic interventions, cervical spine fusino February 2008, lumbar spine surgey, left chest wall port ) Social history: smoking Family history: cancer (multiple relatives, does not know what type of cancer) Medications and Allergies Allergies Allergy/AdvReac Type Severity Reaction Status Date / Time morphine Allergy Shortness Verified 10/22/16 13:39 of Breath nalbuphine HCl [From Nubain] Allergy Shortness Verified 10/22/16 13:39 of Breath PEANUTS Allergy Severe Shortness Uncoded 10/22/16 13:39 of Breath Home Medications Medication Instructions Recorded Confirmed Last Taken Type Carvedilol 12.5 mg PO BID 05/28/13 10/22/1612/28/15 History Finasteride 5 mg PO DAILY 05/28/13 10/22/16 12/27/14 History amLODIPine [Norvasc] 5 mg PO DAILY 05/28/13 10/22/16 12/28/14 History fluPHENAZine (NF) [Prolixin (Nf)] 5 mg PO BID 05/28/13 10/22/16 12/27/14 History Tamsulosin [Flomax] 0.4 mg PO QDAY #30 cap 05/31/16 10/22/16 Unknown Rx Oxycodone HCl/Acetaminophen 1 each PO Q4H PRN 10/22/16 10/22/16 Unknown History [Percocet 10/325 mg] hydrALAZINE [Apresoline] 50 mg PO BID 10/22/16 10/22/16 Unknown History Active Meds: Active Medications Acetaminophen (Tylenol) 650 mg PO Q6H PRN PRN Reason: Non Cardiac Pain or Temp>100.5 Carvedilol (Coreg) 12.5 mg PO BID [facility] Last Admin: 10/24/16 10:27 Dose: 12.5 mg Famotidine (Pepcid) 20 mg PO QDAY [facility] Last Admin: 10/24/16 10:28 Dose: 20 mg Finasteride (Proscar) 5 mg PO DAILY [facility] Last Admin: 10/24/16 10:29 Dose: 5 mg Fluphenazine HCl (Prolixin Hcl) 5 mg PO BID [facility] Last Admin: 10/24/16 10:28 Dose: 5 mg Piperacillin Sod/Tazobactam Sod (Zosyn/Ns 4.5gm/100ml) 100 mls @ 200 mls/hr IV Q8H [facility] PRN Reason: Protocol Last Admin: 10/24/16 04:16 Dose: 200 mls/hr Sodium Chloride (Nacl 0.9% 1000 Ml) 1,000 mls @ 100 mls/hr IV DIRECT [facility] Last Admin: 10/24/16 00:01 Dose: 100 mls/hr Fluconazole (Diflucan/Ns 100 Mg/50 Ml) 50 mls @ 50 mls/hr IV Q24H [facility] Last Admin: 10/23/16 22:00 Dose: 50 mls/hr Nicotine (Habitrol) 21 mg TD Q24H [facility] Last Admin: 10/23/16 23:58 Dose: Not Given Oxycodone HCl (Roxicodone) 5 mg PO Q4H PRN PRN Reason: Pain Last Admin: 10/23/16 21:35 Dose: 5 mg Oxycodone/Acetaminophen (Percocet 5/325) 1 tab PO Q4H PRN PRN Reason: Pain, Moderate (4-6) Last Admin: 10/23/16 21:35 Dose: 1 tab Phenol (Chloraseptic) 1 spray MM PRN PRN PRN Reason: Sore Throat Last Admin: 10/23/16 16:10 Dose: 1 spray Tamsulosin HCl (Flomax) 0.4 mg PO QDAY [facility] Last Admin: 10/24/16 10:27 Dose: 0.4 mg Physical Examination - Physical Exam Narrative exam: Thin male. Chronically ill-appearing. HEENT: Pupils are equal reactive to light and accommodation. Slight periorbital swelling. Conjunctiva clear. Tongue with slight coating. NECK: Supple. No enlargement of the thyroid gland. No significant cervical lymphadenopathy. No jugular venous distention at 30. LUNGS: Clear with no adventitious sounds. HEART: Regular rate. S1 and S2 are normal. Soft systolic murmur along the left sternal border. No diastolic murmur. ABDOMEN: Soft and nontender. Liver and spleen are not palpably enlarged or tender. No palpable masses. Bowel sounds are normoactive. Merino catheter in place. EXTREMITIES: 2 - 3+ swelling of lower extremities bilaterally. Area of denuded right lateral calf skin surface. Stasis distal extremity skin changes. Scabbed ulcers along pretibial leg surfaces bilaterally. SKIN: No other rash, ulcers or wounds. Left chest wall port site is without redness, tenderness or swelling. NEUROLOGIC: No focal findings. - Constitutional Vitals: Vital Signs Temp Pulse Resp BP Pulse Ox 99.0 F 107 H 20 133/86 98 10/24/16 08:45 10/24/16 08:45 10/24/16 08:45 10/24/16 08:45 10/24/16 08:45 Temperature -Last 24 Hours Temperature 99.0 F Temperature 100.8 F Temperature 99.9 F Results - Labs CBC & Chem 7: 10/24/16 07:07 10/24/16 07:07 Labs: Abnormal lab results 10/23/16 10/23/16 10/23/16 Range/Units 21:29 21:29 21:29 WBC 2.9 L (4.5-11.0) K/mm3 RBC 3.41 L (3.65-5.03) M/mm3 Hgb 9.7 L (11.8-15.2) gm/dl Hct 30.1 L (35.5-45.6) % RDW 17.9 H (13.2-15.2) % BUN 8 L (9-20) mg/dL Creatinine 0.7 L (0.8-1.5) mg/dL Calcium 8.0 L (8.4-10.2) mg/dL Iron (49-181) ug/dL TIBC (250-450) mcg/dL Ferritin (13.0-400.0) ng/mL Vitamin B12 1098 H (211-911) pg/mL Folate (7.3-26.0) ng/mL 10/23/16 10/23/16 10/23/16 Range/Units 21:29 21:29 21:29 WBC (4.5-11.0) K/mm3 RBC (3.65-5.03) M/mm3 Hgb (11.8-15.2) gm/dl Hct (35.5-45.6) % RDW (13.2-15.2) % BUN (9-20) mg/dL Creatinine (0.8-1.5) mg/dL Calcium (8.4-10.2) mg/dL Iron 18 L (49-181) ug/dL TIBC 163 L (250-450) mcg/dL Ferritin 1321.0 H (13.0-400.0) ng/mL Vitamin B12 (211-911) pg/mL Folate 6.83 L (7.3-26.0) ng/mL 10/24/16 10/24/16 Range/Units 07:07 07:07 WBC 2.1 L (4.5-11.0) K/mm3 RBC 3.09 L (3.65-5.03) M/mm3 Hgb 8.8 L (11.8-15.2) gm/dl Hct 26.4 L (35.5-45.6) % RDW 17.8 H (13.2-15.2) % BUN 6 L (9-20) mg/dL Creatinine 0.7 L (0.8-1.5) mg/dL Calcium 7.8 L (8.4-10.2) mg/dL Iron (49-181) ug/dL TIBC (250-450) mcg/dL Ferritin (13.0-400.0) ng/mL Vitamin B12 (211-911) pg/mL Folate (7.3-26.0) ng/mL Assessment and Plan Assessment: Mr Gill is a 66 y/o AA male who is followed with a known history of hypertension , CLL on previous chemotherapy, indwelling port, chronic indwelling Merino catheter, and history of ureteral stones who presents for admission to with fever, chills, malaise and anorexia. He is seen with a low-grade fever, an active urinary sediment, urine cultures positive for Klebsiella pneumoniae, and mild neutropenia. Antibiotics: Ceftriaxone 1 g IV daily ( 10/24 -> Fluconazole 100 mg IV/po ( 10/22 - > s/p: Zosyn 4.5 g IV every 8 hour ( 10/22 - 10/24) Conclusions: 1. Klebsiella UTI ( CAUTI) - R/O sepsis - Chronic Merino catheter 2. CLL s/p chemotherapy ( last 08/23/16) - Neutropenia 3. Hx of nephrolithiasis - s/p 12/28/14 cystoscopy with right ureteral stone basket extraction and right ureteral stent placement 4. Chronic lower extremity edema - Multiple superficial ulcers without secondary infection 5. Thrush 6. Anemia- - probably secondary to chronic disease 7. Protein calorie malnutrition Recommendations: -Suggest therapy with IV ceftriaxone 1 g daily. Zosyn stopped. -Continue by mouth fluconazole for thrush - Follow WBC numbers - Bilateral renal ultrasound ordered looking for any evidence of hydronephrosis or upper tract disease. - ? Need for chronic Merino - If patient otherwise remained stable he could be treated on oral antibiotics at home. Would complete 7 day course of antibiotics as long as blood cultures remained sterile. - Medical therapies as per Hospitalist
[2016-10-24] MEDS ORDERED: ROCEPHIN/NS 1 GM/50 ML 50 ML IV SCH (13:00)
[2016-10-24] MEDS: FOLVITE PO SCH (14:53)
[2016-10-24] MEDS: DIFLUCAN PO SCH (14:54)
[2016-10-24] MEDS: ROCEPHIN/NS 1 GM/50 ML 1 GM/50 ML BAG IV SCH (14:55)
[2016-10-24] MEDS: PERCOCET 5/325 PO PRN ×2 (15:16→20:31)
[2016-10-24] MEDS: ROXICODONE PO PRN ×2 (15:16→20:31)
--- NOTE | 2016-10-24 15:17 | Progress Note ---
Hospitalist Physical - Constitutional Vitals: Temp Pulse Resp BP Pulse Ox 99.5 F 87 20 121/71 98 10/24/16 14:55 10/24/16 14:55 10/24/16 14:55 10/24/16 14:55 10/24/16 08:45 General appearance: Present: mild distress, well-nourished, other (chronically ill looking) Results - Labs CBC & Chem 7: 10/24/16 07:07 10/24/16 07:07 Labs: Laboratory Last Values WBC 2.1 K/mm3 (4.5-11.0) L 10/24/16 07:07 RBC 3.09 M/mm3 (3.65-5.03) L 10/24/16 07:07 Hgb 8.8 gm/dl (11.8-15.2) L 10/24/16 07:07 Hct 26.4 % (35.5-45.6) L 10/24/16 07:07 MCV 86 fl (84-94) 10/24/16 07:07 MCH 28 pg (28-32) 10/24/16 07:07 MCHC 33 % (32-34) 10/24/16 07:07 RDW 17.8 % (13.2-15.2) H 10/24/16 07:07 Plt Count 410 K/mm3 (140-440) 10/24/16 07:07 Add Manual Diff Complete 10/22/16 15:23 Total Counted 100 10/22/16 15:23 Seg Neuts % (Manual) 71.0 % (40.0-70.0) H 10/22/16 15:23 Band Neutrophils % 0 % 10/22/16 15:23 Lymphocytes % (Manual) 17.0 % (13.4-35.0) 10/22/16 15:23 Reactive Lymphs % (Man) 0 % 10/22/16 15:23 Monocytes % (Manual) 12.0 % (0.0-7.3) H 10/22/16 15:23 Eosinophils % (Manual) 0 % (0.0-4.3) 10/22/16 15:23 Basophils % (Manual) 0 % (0.0-1.8) 10/22/16 15:23 Metamyelocytes % 0 % 10/22/16 15:23 Myelocytes % 0 % 10/22/16 15:23 Promyelocytes % 0 % 10/22/16 15:23 Blast Cells % 0 % 10/22/16 15:23 Nucleated RBC % Not Reportable 10/22/16 15:23 Seg Neutrophils # Man 1.6 K/mm3 (1.8-7.7) L 10/22/16 15:23 Band Neutrophils # 0.0 K/mm3 10/22/16 15:23 Lymphocytes # (Manual) 0.4 K/mm3 (1.2-5.4) L 10/22/16 15:23 Abs React Lymphs (Man) 0.0 K/mm3 10/22/16 15:23 Monocytes # (Manual) 0.3 K/mm3 (0.0-0.8) 10/22/16 15:23 Eosinophils # (Manual) 0.0 K/mm3 (0.0-0.4) 10/22/16 15:23 Basophils # (Manual) 0.0 K/mm3 (0.0-0.1) 10/22/16 15:23 Metamyelocytes # 0.0 K/mm3 10/22/16 15:23 Myelocytes # 0.0 K/mm3 10/22/16 15:23 Promyelocytes # 0.0 K/mm3 10/22/16 15:23 Blast Cells # 0.0 K/mm3 10/22/16 15:23 WBC Morphology Not Reportable 10/22/16 15:23 Hypersegmented Neuts Not Reportable 10/22/16 15:23 Hyposegmented Neuts Not Reportable 10/22/16 15:23 Hypogranular Neuts Not Reportable 10/22/16 15:23 Smudge Cells Not Reportable 10/22/16 15:23 Toxic Granulation Not Reportable 10/22/16 15:23 Toxic Vacuolation Not Reportable 10/22/16 15:23 Dohle Bodies Not Reportable 10/22/16 15:23 Pelger-Huet Anomaly Not Reportable 10/22/16 15:23 J Luis Rods Not Reportable 10/22/16 15:23 Platelet Estimate Consistent w auto 10/22/16 15:23 Clumped Platelets Not Reportable 10/22/16 15:23 Plt Clumps, EDTA Not Reportable 10/22/16 15:23 Large Platelets 1+ 10/22/16 15:23 Giant Platelets Rare 10/22/16 15:23 Platelet Satelliting Not Reportable 10/22/16 15:23 Plt Morphology Comment Not Reportable 10/22/16 15:23 RBC Morphology Not Reportable 10/22/16 15:23 Dimorphic RBCs Not Reportable 10/22/16 15:23 Polychromasia Not Reportable 10/22/16 15:23 Hypochromasia Not Reportable 10/22/16 15:23 Poikilocytosis Not Reportable 10/22/16 15:23 Anisocytosis 3+ 10/22/16 15:23 Microcytosis Not Reportable 10/22/16 15:23 Macrocytosis Not Reportable 10/22/16 15:23 Spherocytes Not Reportable 10/22/16 15:23 Pappenheimer Bodies Not Reportable 10/22/16 15:23 Sickle Cells Not Reportable 10/22/16 15:23 Target Cells Rare 10/22/16 15:23 Tear Drop Cells Not Reportable 10/22/16 15:23 Ovalocytes Few 10/22/16 15:23 Helmet Cells Not Reportable 10/22/16 15:23 Ari[place] Bodies Not Reportable 10/22/16 15:23 [place] Rings Not Reportable 10/22/16 15:23 [place] Cells Not Reportable 10/22/16 15:23 Bite Cells Not Reportable 10/22/16 15:23 Crenated Cell Not Reportable 10/22/16 15:23 Elliptocytes Not Reportable 10/22/16 15:23 Acanthocytes (Spur) Not Reportable 10/22/16 15:23 Rouleaux Not Reportable 10/22/16 15:23 Hemoglobin C Crystals Not Reportable 10/22/16 15:23 Schistocytes Rare 10/22/16 15:23 Malaria parasites Not Reportable 10/22/16 15:23 Percent Retic 1.81 % (0.78-2.58) 10/23/16 21:29 Vincent Bodies Not Reportable 10/22/16 15:23 Hem Pathologist Commnt No 10/22/16 15:23 PT 14.1 Sec. (12.2-14.9) 10/22/16 15:32 INR 1.10 (0.87-1.13) 10/22/16 15:32 VBG pH 7.417 (7.320-7.420) 10/22/16 15:32 Sodium 137 mmol/L (137-145) 10/24/16 07:07 Potassium 3.9 mmol/L (3.6-5.0) 10/24/16 07:07 Chloride 99.6 mmol/L (98-107) 10/24/16 07:07 Carbon Dioxide 26 mmol/L (22-30) 10/24/16 07:07 Anion Gap 15 mmol/L 10/24/16 07:07 BUN 6 mg/dL (9-20) L 10/24/16 07:07 Creatinine 0.7 mg/dL (0.8-1.5) L 10/24/16 07:07 Estimated GFR > 60 ml/min 10/24/16 07:07 BUN/Creatinine Ratio 8.57 % 10/24/16 07:07 Glucose 93 mg/dL (75-100) 10/24/16 07:07 Lactic Acid 1.0 mmol/L (0.7-2.0) 10/22/16 16:41 Calcium 7.8 mg/dL (8.4-10.2) L 10/24/16 07:07 Iron 18 ug/dL (49-181) L 10/23/16 21:29 TIBC 163 mcg/dL (250-450) L 10/23/16 21:29 Ferritin 1321.0 ng/mL (13.0-400.0) H 10/23/16 21:29 Total Bilirubin 0.6 mg/dL (0.1-1.2) 10/22/16 15:23 AST 71 units/L (5-40) H 10/22/16 15:23 ALT 55 units/L (7-56) 10/22/16 15:23 Alkaline Phosphatase 68 units/L (35-129) 10/22/16 15:23 Total Protein 5.3 g/dL (6.3-8.2) L 10/22/16 15:23 Albumin 2.6 g/dL (3.9-5) L 10/22/16 15:23 Albumin/Globulin Ratio 1.0 % 10/22/16 15:23 Vitamin B12 1098 pg/mL (211-911) H 10/23/16 21:29 Folate 6.83 ng/mL (7.3-26.0) L 10/23/16 21:29 Urine Color Yellow (Yellow) 10/22/16 15:00 Urine Turbidity Clear (Clear) 10/22/16 15:00 Urine pH 7.0 (5.0-7.0) 10/22/16 15:00 Ur Specific [place] 1.010 (1.003-1.030) 10/22/16 15:00 Urine Protein <15 mg/dl mg/dL (Negative) 10/22/16 15:00 Urine Glucose (UA) Neg mg/dL (Negative) 10/22/16 15:00 Urine Ketones Neg mg/dL (Negative) 10/22/16 15:00 Urine Blood Mod (Negative) 10/22/16 15:00 Urine Nitrite Pos (Negative) 10/22/16 15:00 Urine Bilirubin Neg (Negative) 10/22/16 15:00 Urine Urobilinogen 2.0 mg/dL (<2.0) 10/22/16 15:00 Ur Leukocyte Esterase Mod (Negative) 10/22/16 15:00 Urine WBC (Auto) 15.0 /HPF (0.0-6.0) H 10/22/16 15:00 Urine RBC (Auto) 1.0 /HPF (0.0-6.0) 10/22/16 15:00 U Epithel Cells (Auto) < 1.0 /HPF (0-13.0) 10/22/16 15:00 Urine Bacteria (Auto) 2+ /HPF (Negative) 10/22/16 15:00 Urine Mucus Few /HPF 10/22/16 15:00 Direct Antiglob Test Negative 10/23/16 21:29 ROBBI, Poly Interpret Negative 10/23/16 21:29
--- NOTE | 2016-10-24 15:25 | Ultrasound Report ---
ULTRASOUND RENAL BILATERAL HISTORY: Urinary tract infection. TECHNIQUE: transabdominal ultrasound with color Doppler interrogation. FINDINGS: The right kidney measures 11.4 x 4.4 x 5.9cm. Right renal cortex: 1.5cm. The left kidney measures 11.4 x 6.1 x 5.4cm. Left renal cortex: 1.7cm. Scans of the kidneys show normal renal contours. There is normal central calyceal clustering and good preservation of the cortical thickness. There is no evidence of mass or hydronephrosis. The views of the bladder and the region of the ureters appear normal. IMPRESSION: Unremarkable renal ultrasound.
[2016-10-24] MEDS: HEPARIN SUB-Q SCH (22:04)
[2016-10-24] MEDS: HABITROL TD SCH (22:04)
[2016-10-25] MEDS: PERCOCET 5/325 PO PRN ×3 (01:15→22:31)
[2016-10-25] MEDS: ROXICODONE PO PRN ×3 (01:16→22:31)
[2016-10-25] MEDS: NACL 0.9% 1000 ML 1,000 ML IV SCH ×3 (01:16→22:40)
[2016-10-25] MEDS: HEPARIN SUB-Q SCH ×3 (05:37→22:32)
--- NOTE | 2016-10-25 07:05 | Physician Progress Note ---
SUBJECTIVE: The patient has no new complaints today. He states he is feeling much better. He has generalized weakness, but improved. No fever, no chills today. He has been treated for suspected urosepsis. Edema lower extremity continued to be present. His albumin is 2.6. OBJECTIVE: VITAL SIGNS: Temperature 99.0, was 100.8 in the morning today at midnight. Blood pressure 133/86, pulse has been around 90, respirations 20. GENERAL: The patient is alert, oriented, not in apparent distress. He is taking pleasantly. He is responding appropriately. SKIN: No new bruises, no petechia. HEENT: Pale conjunctivae. NECK: No adenopathy. CHEST: Normal breathing pattern. LUNGS: Clear. No rales, no wheezing. HEART: Regular rate and rhythm. No S3 gallop. ABDOMEN: Soft, nontender. No palpable liver or spleen. EXTREMITIES: No calves tenderness bilaterally. He has pitting edema, 1-2+ both legs. CENTRAL NERVOUS SYSTEM: No acute deficit. This patient has drop in his right eyelid, chronic. LABORATORY DATA: Follow up lab did show today, white blood count down to 2.1, hemoglobin 8.8, hematocrit 26.4, platelets 410,000. Retic count 1.81. IgG pending. Heptoglobin pending. On admission, PT 14.1, INR 1.1. Iron 18, nonetheless, total iron binding capacity is not elevated at 163, and ferritin is up 1321. B12 is not depressed, 1098. Folic acid low at 6.83. ASSESSMENT: 1. Recent fever, further workup, finding consistent with urosepsis, patient on antibiotics, feeling better. 2. Pancytopenia secondary to chemotherapy. Last treatment initiated 08/23/2016. 3. Folic acid deficiency. 4. Protein calorie malnutrition, associated with peripheral edema, law firm administrator being consulted. PLAN: 1. The patient is currently having a followup ultrasound of the kidney. Results will be reviewed when they are available. 2. Leukopenia is moderate, continue to treat current infection, no indication for growth factors support. 3. IgG pending. We will review when it is available, if indicated, the patient could benefit from IVIG, nonetheless at this moment, probably he will receive antibiotic therapy only. 4. Regarding folic acid deficiency, he started on folic acid 1 mg p.o. daily. 5. Discussed the above with the patient. 6. Discussed the above with the . 7. The patient due for chemotherapy, Rituxan - bendamustine). This will be put on hold with current acute medical illness. Discussed with the patient and . JOB# [id number] ASA/NTS MTDD
[2016-10-25 10:26] LABS: Hematocrit 29.5 % (35.5-45.6); Hemoglobin 9.8 gm/dl (11.8-15.2); Mean Corpuscular HGB Conc 33 % (32-34); Mean Corpuscular Hemoglobin 29 pg (28-32); Mean Corpuscular Volume 86 fl (84-94); Platelet Count 436 K/mm3 (140-440); Red Blood Count 3.45 M/mm3 (3.65-5.03); White Blood Count 3.2 K/mm3 (4.5-11.0)
[2016-10-25] MEDS: COREG PO SCH ×2 (10:28→22:33)
[2016-10-25] MEDS: DIFLUCAN PO SCH (10:29)
[2016-10-25] MEDS: ROCEPHIN/NS 1 GM/50 ML 1 GM/50 ML BAG IV SCH (10:29)
[2016-10-25] MEDS: FOLVITE PO SCH (10:30)
[2016-10-25] MEDS: PEPCID PO SCH (10:30)
[2016-10-25] MEDS: FLOMAX PO SCH (10:30)
[2016-10-25] MEDS: PROLIXIN HCL PO SCH ×3 (10:31→22:41)
[2016-10-25] MEDS: PROSCAR PO SCH (10:31)
--- NOTE | 2016-10-25 10:47 | Progress Note ---
Assessment and Plan Assessment: Mr Gill is a 66 y/o AA male who is followed with a known history of hypertension , CLL on previous chemotherapy, indwelling port, chronic indwelling Merino catheter, and history of ureteral stones who presents for admission to with fever, chills, malaise and anorexia. He is seen with a low-grade fever, an active urinary sediment, urine cultures positive for Klebsiella pneumoniae, and mild neutropenia. Antibiotics: Ceftriaxone 1 g IV daily ( 10/24 -> Fluconazole 100 mg IV/po ( 10/22 - > s/p: Zosyn 4.5 g IV every 8 hour ( 10/22 - 10/24) Conclusions: 1. Klebsiella UTI ( CAUTI) - R/O sepsis - Chronic Merino catheter - Renal ultrasound 10/24 - normal 2. CLL s/p chemotherapy ( last 08/23/16) - Neutropenia 3. Hx of nephrolithiasis - s/p 12/28/14 cystoscopy with right ureteral stone basket extraction and right ureteral stent placement 4. Chronic lower extremity edema - Multiple superficial ulcers without secondary infection 5. Thrush 6. Anemia- - probably secondary to chronic disease 7. Protein calorie malnutrition Recommendations: -Suggest continue therapy with IV ceftriaxone 1 g daily. -Continue by mouth fluconazole for thrush - Follow WBC numbers - ? Need for chronic Merino - Await urology follow-up. - If patient otherwise remained stable he could be treated on oral antibiotics at home. Would complete 7 day course of antibiotics as long as blood cultures remain sterile. - Medical therapies as per Hospitalist Subjective Date of service: 10/25/16 Interval history: Patient is without complaints. Discussed the situation with the patient's . Apparently,Mr Gill, had a InterStim device implanted by which had not been functioning properly. His Merino then was inserted approximately 1 week ago. Objective - Exam Narrative Exam: Thin male. Chronically ill-appearing. HEENT: Pupils are equal reactive to light and accommodation. Slight periorbital swelling. Conjunctiva clear. Tongue with slight coating. NECK: Supple. No enlargement of the thyroid gland. No significant cervical lymphadenopathy. No jugular venous distention at 30. LUNGS: Clear with no adventitious sounds. HEART: Regular rate. S1 and S2 are normal. Soft systolic murmur along the left sternal border. No diastolic murmur. ABDOMEN: Soft and nontender. Liver and spleen are not palpably enlarged or tender. No palpable masses. Bowel sounds are normoactive. Merino catheter in place. EXTREMITIES: 2 - 3+ swelling of lower extremities bilaterally. Area of denuded right lateral calf skin surface. Stasis distal extremity skin changes. Scabbed ulcers along pretibial leg surfaces bilaterally. SKIN: No other rash, ulcers or wounds. Left chest wall port site is without redness, tenderness or swelling. NEUROLOGIC: No focal findings. - Constitutional Vitals: Vital Signs Temp Pulse Resp BP Pulse Ox 100.1 F H 97 H 20 157/85 98 10/25/16 08:10 10/25/16 08:10 10/25/16 08:10 10/25/16 08:10 10/25/16 08:10 Temperature -Last 24 Hours Temperature 100.1 F Temperature 99.2 F Temperature 99.5 F - Labs CBC & Chem 7: 10/25/16 10:10 10/24/16 07:07 Labs: Abnormal lab results 10/25/16 Range/Units 10:10 WBC 3.2 L (4.5-11.0) K/mm3 RBC 3.45 L (3.65-5.03) M/mm3 Hgb 9.8 L (11.8-15.2) gm/dl Hct 29.5 L (35.5-45.6) % RDW 18.0 H (13.2-15.2) %
--- NOTE | 2016-10-25 11:54 | Hem/Onc Progress Note ---
Assessment and Plan - Patient Problems (1) Chronic lymphocytic leukemia (CLL), B-cell Current Visit: Yes Status: Chronic Qualifiers: Leukemia Active/Remission status: in remission Qualified Code(s): C91.11 - Chronic lymphocytic leukemia of B-cell type in remission Plan to address problem: Follow up with Dr. Scott as outpatient regarding additional treatment. (2) UTI (urinary tract infection) Current Visit: Yes Status: Acute Qualifiers: Urinary tract infection type: U Hematuria presence: H Indwelling urinary catheter type: I Encounter type: E Plan to address problem: Continue with Ceftrioxone. Urology following. (3) Oral candidiasis Current Visit: Yes Status: Acute Plan to address problem: Continue on Fluconizole. Subjective Date of service: 10/25/16 Interval history: Fairly comfortable at this time. at bedside reports that pt is supposed to have treatment today. Will follow up with Dr. Scott as outpatient. Currently on Ceftrioxone and Fluconizole. Urology following. Objective - Constitutional Vitals: Last Vital Signs Temp 100.1 F H 10/25/16 08:10 Pulse 97 H 10/25/16 08:10 Resp 20 10/25/16 08:10 BP 157/85 10/25/16 08:10 Pulse Ox 98 10/25/16 08:10 Pain Intensity (0-10): denies any pain General appearance: no acute distress Performance status: 3-limited selfcare - EENT Eyes: PERRL ENT: hearing intact - Neck Neck: supple - Respiratory Respiratory effort: Positive: normal Respiratory: bilateral: rhonchi (Few rhonchi) - Cardiovascular Rhythm: regular Heart Sounds: Present: S1 & S2 Extremities: no ischemia Extremity abnormal: edema, other (Multiple healing excoriations) - Gastrointestinal General gastrointestinal: Present: soft, non-tender, normal bowel sounds Rectal Exam: deferred - Genitourinary Male genitourinary: Present: deferred - Integumentary Integumentary: clear, warm, dry - Musculoskeletal Musculoskeletal: generalized weakness - Psychiatric Psychiatric: appropriate mood/affect, cooperative - Labs Lab Results: Laboratory Results - last 24 hr 10/25/16 10:10 WBC 3.2 L RBC 3.45 L Hgb 9.8 L Hct 29.5 L MCV 86 MCH 29 MCHC 33 RDW 18.0 H Plt Count 436
--- NOTE | 2016-10-25 14:27 | Progress Note ---
Assessment and Plan Assessment and plan: Complicated urinary tract infection. He has had a Merino catheter in for about 1 week. Continue Rocephin as recommended by ID physician Urine cultures show Klebsiella pneumonia. ID physician following Sepsis secondary to urinary tract infection. Continue Rocephin. History of CLL. Undergoing treatment by oncologist. Hypertension. Blood pressure stable Oral candidiasis. On Diflucan DVT prophylaxis Full code status Leg ulcer, blisters . Wound care nurse managing. Disposition. Patient's and requesting rehabilitation placement. He is medically stable to go to rehabilitation. Awaiting placement History Interval history: Feels better, Generalized weakness improving, No abdominal pain, No fever Hospitalist Physical - Physical exam Narrative exam: Gen appearance: not in acute distress, HEENT: Normocephalic, atraumatic Neck : supple, no JVD Lungs: Clear to auscultation bilaterally, no crackles, no wheezes. Heart : S1 and S2 regular, no murmurs rubs or gallop, Abdomen: soft non-tender, non-distended, normal bowel sounds Extremities: No edema no clubbing or cyanosis, leg blisters and ulcer Neuro :awake alert oriented, no focal signs Psych :appropriate mood : Indwelling Merino catheter - Constitutional Vitals: Temp Pulse Resp BP Pulse Ox 100.1 F H 97 H 20 157/85 98 10/25/16 08:10 10/25/16 08:10 10/25/16 08:10 10/25/16 08:10 10/25/16 08:10 General appearance: Present: mild distress, well-nourished, other (chronically ill looking) Results - Labs CBC & Chem 7: 10/25/16 10:10 10/24/16 07:07 Labs: Laboratory Last Values WBC 3.2 K/mm3 (4.5-11.0) L 10/25/16 10:10 RBC 3.45 M/mm3 (3.65-5.03) L 10/25/16 10:10 Hgb 9.8 gm/dl (11.8-15.2) L 10/25/16 10:10 Hct 29.5 % (35.5-45.6) L 10/25/16 10:10 MCV 86 fl (84-94) 10/25/16 10:10 MCH 29 pg (28-32) 10/25/16 10:10 MCHC 33 % (32-34) 10/25/16 10:10 RDW 18.0 % (13.2-15.2) H 10/25/16 10:10 Plt Count 436 K/mm3 (140-440) 10/25/16 10:10 Add Manual Diff Complete 10/22/16 15:23 Total Counted 100 10/22/16 15:23 Seg Neuts % (Manual) 71.0 % (40.0-70.0) H 10/22/16 15:23 Band Neutrophils % 0 % 10/22/16 15:23 Lymphocytes % (Manual) 17.0 % (13.4-35.0) 10/22/16 15:23 Reactive Lymphs % (Man) 0 % 10/22/16 15:23 Monocytes % (Manual) 12.0 % (0.0-7.3) H 10/22/16 15:23 Eosinophils % (Manual) 0 % (0.0-4.3) 10/22/16 15:23 Basophils % (Manual) 0 % (0.0-1.8) 10/22/16 15:23 Metamyelocytes % 0 % 10/22/16 15:23 Myelocytes % 0 % 10/22/16 15:23 Promyelocytes % 0 % 10/22/16 15:23 Blast Cells % 0 % 10/22/16 15:23 Nucleated RBC % Not Reportable 10/22/16 15:23 Seg Neutrophils # Man 1.6 K/mm3 (1.8-7.7) L 10/22/16 15:23 Band Neutrophils # 0.0 K/mm3 10/22/16 15:23 Lymphocytes # (Manual) 0.4 K/mm3 (1.2-5.4) L 10/22/16 15:23 Abs React Lymphs (Man) 0.0 K/mm3 10/22/16 15:23 Monocytes # (Manual) 0.3 K/mm3 (0.0-0.8) 10/22/16 15:23 Eosinophils # (Manual) 0.0 K/mm3 (0.0-0.4) 10/22/16 15:23 Basophils # (Manual) 0.0 K/mm3 (0.0-0.1) 10/22/16 15:23 Metamyelocytes # 0.0 K/mm3 10/22/16 15:23 Myelocytes # 0.0 K/mm3 10/22/16 15:23 Promyelocytes # 0.0 K/mm3 10/22/16 15:23 Blast Cells # 0.0 K/mm3 10/22/16 15:23 WBC Morphology Not Reportable 10/22/16 15:23 Hypersegmented Neuts Not Reportable 10/22/16 15:23 Hyposegmented Neuts Not Reportable 10/22/16 15:23 Hypogranular Neuts Not Reportable 10/22/16 15:23 Smudge Cells Not Reportable 10/22/16 15:23 Toxic Granulation Not Reportable 10/22/16 15:23 Toxic Vacuolation Not Reportable 10/22/16 15:23 Dohle Bodies Not Reportable 10/22/16 15:23 Pelger-Huet Anomaly Not Reportable 10/22/16 15:23 J Luis Rods Not Reportable 10/22/16 15:23 Platelet Estimate Consistent w auto 10/22/16 15:23 Clumped Platelets Not Reportable 10/22/16 15:23 Plt Clumps, EDTA Not Reportable 10/22/16 15:23 Large Platelets 1+ 10/22/16 15:23 Giant Platelets Rare 10/22/16 15:23 Platelet Satelliting Not Reportable 10/22/16 15:23 Plt Morphology Comment Not Reportable 10/22/16 15:23 RBC Morphology Not Reportable 10/22/16 15:23 Dimorphic RBCs Not Reportable 10/22/16 15:23 Polychromasia Not Reportable 10/22/16 15:23 Hypochromasia Not Reportable 10/22/16 15:23 Poikilocytosis Not Reportable 10/22/16 15:23 Anisocytosis 3+ 10/22/16 15:23 Microcytosis Not Reportable 10/22/16 15:23 Macrocytosis Not Reportable 10/22/16 15:23 Spherocytes Not Reportable 10/22/16 15:23 Pappenheimer Bodies Not Reportable 10/22/16 15:23 Sickle Cells Not Reportable 10/22/16 15:23 Target Cells Rare 10/22/16 15:23 Tear Drop Cells Not Reportable 10/22/16 15:23 Ovalocytes Few 10/22/16 15:23 Helmet Cells Not Reportable 10/22/16 15:23 Arias-[place] Bodies Not Reportable 10/22/16 15:23 [place] Rings Not Reportable 10/22/16 15:23 Sean Cells Not Reportable 10/22/16 15:23 Bite Cells Not Reportable 10/22/16 15:23 Crenated Cell Not Reportable 10/22/16 15:23 Elliptocytes Not Reportable 10/22/16 15:23 Acanthocytes (Spur) Not Reportable 10/22/16 15:23 Rouleaux Not Reportable 10/22/16 15:23 Hemoglobin C Crystals Not Reportable 10/22/16 15:23 Schistocytes Rare 10/22/16 15:23 Malaria parasites Not Reportable 10/22/16 15:23 Percent Retic 1.81 % (0.78-2.58) 10/23/16 21:29 Vincent Bodies Not Reportable 10/22/16 15:23 Hem Pathologist Commnt No 10/22/16 15:23 PT 14.1 Sec. (12.2-14.9) 10/22/16 15:32 INR 1.10 (0.87-1.13) 10/22/16 15:32 VBG pH 7.417 (7.320-7.420) 10/22/16 15:32 Sodium 137 mmol/L (137-145) 10/24/16 07:07 Potassium 3.9 mmol/L (3.6-5.0) 10/24/16 07:07 Chloride 99.6 mmol/L (98-107) 10/24/16 07:07 Carbon Dioxide 26 mmol/L (22-30) 10/24/16 07:07 Anion Gap 15 mmol/L 10/24/16 07:07 BUN 6 mg/dL (9-20) L 10/24/16 07:07 Creatinine 0.7 mg/dL (0.8-1.5) L 10/24/16 07:07 Estimated GFR > 60 ml/min 10/24/16 07:07 BUN/Creatinine Ratio 8.57 % 10/24/16 07:07 Glucose 93 mg/dL (75-100) 10/24/16 07:07 Lactic Acid 1.0 mmol/L (0.7-2.0) 10/22/16 16:41 Calcium 7.8 mg/dL (8.4-10.2) L 10/24/16 07:07 Iron 18 ug/dL (49-181) L 10/23/16 21:29 TIBC 163 mcg/dL (250-450) L 10/23/16 21:29 Ferritin 1321.0 ng/mL (13.0-400.0) H 10/23/16 21:29 Total Bilirubin 0.6 mg/dL (0.1-1.2) 10/22/16 15:23 AST 71 units/L (5-40) H 10/22/16 15:23 ALT 55 units/L (7-56) 10/22/16 15:23 Alkaline Phosphatase 68 units/L (35-129) 10/22/16 15:23 Total Protein 5.3 g/dL (6.3-8.2) L 10/22/16 15:23 Albumin 2.6 g/dL (3.9-5) L 10/22/16 15:23 Albumin/Globulin Ratio 1.0 % 10/22/16 15:23 Vitamin B12 1098 pg/mL (211-911) H 10/23/16 21: Folate 6.83 ng/mL (7.3-26.0) L 10/23/16 21:29 Urine Color Yellow (Yellow) 10/22/16 15:00 Urine Turbidity Clear (Clear) 10/22/16 15:00 Urine pH 7.0 (5.0-7.0) 10/22/16 15:00 Ur Specific [place] 1.010 (1.003-1.030) 10/22/16 15:00 Urine Protein <15 mg/dl mg/dL (Negative) 10/22/16 15:00 Urine Glucose (UA) Neg mg/dL (Negative) 10/22/16 15:00 Urine Ketones Neg mg/dL (Negative) 10/22/16 15:00 Urine Blood Mod (Negative) 10/22/16 15:00 Urine Nitrite Pos (Negative) 10/22/16 15:00 Urine Bilirubin Neg (Negative) 10/22/16 15:00 Urine Urobilinogen 2.0 mg/dL (<2.0) 10/22/16 15:00 Ur Leukocyte Esterase Mod (Negative) 10/22/16 15:00 Urine WBC (Auto) 15.0 /HPF (0.0-6.0) H 10/22/16 15:00 Urine RBC (Auto) 1.0 /HPF (0.0-6.0) 10/22/16 15:00 U Epithel Cells (Auto) < 1.0 /HPF (0-13.0) 10/22/16 15:00 Urine Bacteria (Auto) 2+ /HPF (Negative) 10/22/16 15:00 Urine Mucus Few /HPF 10/22/16 15:00 Direct Antiglob Test Negative 10/23/16 21:29 ROBBI, Poly Interpret Negative 10/23/16 21:29
--- NOTE | 2016-10-25 17:15 | Consultation ---
History of Present Illness - Reason for Consult Consult date: 10/25/16 - History of Present Illness Mr Gill is a 66 y/o AA male who is followed with a known history of hypertension , CLL on previous chemotherapy, indwelling port, chronic indwelling Padgett catheter, and history of ureteral stones who presents for admission to with fever, chills, malaise and anorexia. He is seen with a low-grade fever, an active urinary sediment, urine cultures positive for Klebsiella pneumoniae, and mild neutropenia. present renal us (10-24-16) normal + padgett (clear urine) A/P UTI (comnplicated) CLL spine disease (not a surgical candidate per Dr. Santos) - with back pain urinary retention due to spine disease (s/p interstim) -----can't turn up interstim due to pain gu recommendation: agree with rehab keep interstim off continue padgett - change q 4-6 weeks can add anti cholinergic (toviaz 4mg daily if needed, etc) suppression abx if recurrent UTI (at ID recommendation) Past History Past Medical History: hypertension, other (Lumbar radiculopathy, DDD, BPH, kidney stones, urethral stricture) Past Surgical History: Other (multiple urologic interventions, cervical spine fusino February 2008, lumbar spine surgey, left chest wall port ) Social history: smoking Family history: cancer (multiple relatives, does not know what type of cancer) Medications and Allergies Allergies Allergy/AdvReac Type Severity Reaction Status Date / Time morphine Allergy Shortness Verified 10/22/16 13:39 of Breath nalbuphine HCl [From Nubain] Allergy Shortness Verified 10/22/16 13:39 of Breath PEANUTS Allergy Severe Shortness Uncoded 10/22/16 13:39 of Breath Home Medications Medication Instructions Recorded Confirmed Last Taken Type Carvedilol 12.5 mg PO BID 05/28/13 10/22/16 12/28/14 History Finasteride 5 mg PO DAILY 05/28/13 10/22/16 12/27/14 History amLODIPine [Norvasc] 5 mg PO DAILY 05/28/13 10/22/16 12/28/14 History fluPHENAZine (NF) [Prolixin (Nf)] 5 mg PO DAILY 05/28/13 10/24/16 12/27/14 History Tamsulosin [Flomax] 0.4 mg PO QDAY #30 cap 05/31/16 10/22/16 Unknown Rx Oxycodone HCl/Acetaminophen 1 each PO Q4H PRN 10/22/16 10/22/16 Unknown History [Percocet 10/325 mg] hydrALAZINE [Apresoline] 50 mg PO BID 10/22/16 10/22/16 Unknown History Active Meds: Active Medications Acetaminophen (Tylenol) 650 mg PO Q6H PRN PRN Reason: Non Cardiac Pain or Temp>100.5 Carvedilol (Coreg) 12.5 mg PO BID [facility] Last Admin: 10/25/16 10:28 Dose: 12.5 mg Famotidine (Pepcid) 20 mg PO QDAY [facility] Last Admin: 10/25/16 10:30 Dose: 20 mg Finasteride (Proscar) 5 mg PO DAILY [facility] Last Admin: 10/25/16 10:31 Dose: 5 mg Fluconazole (Diflucan) 100 mg PO QDAY [facility] Last Admin: 10/25/16 10:29 Dose: 100 mg Fluphenazine HCl (Prolixin Hcl) 5 mg PO BID [facility] Last Admin: 10/25/16 10:31 Dose: 5 mg Folic Acid (Folvite) 1 mg PO QDAY [facility] Last Admin: 10/25/16 10:30 Dose: 1 mg Heparin Sodium (Porcine) (Heparin) 5,000 unit SUB-Q Q8HR [facility] Last Admin: 10/25/16 14:15 Dose: Not Given Sodium Chloride (Nacl 0.9% 1000 Ml) 1,000 mls @ 100 mls/hr IV DIRECT [facility] Last Admin: 10/25/16 10:59 Dose: 100 mls/hr Ceftriaxone Sodium (Rocephin/Ns 1 Gm/50 Ml) 1 gm in 50 mls @ 100 mls/hr IV Q24HR [facility] Last Admin: 10/25/16 10:29 Dose: 100 mls/hr Nicotine (Habitrol) 21 mg TD Q24H [facility] Last Admin: 10/24/16 22:04 Dose: Not Given Oxycodone HCl (Roxicodone) 5 mg PO Q4H PRN PRN Reason: Pain Last Admin: 10/25/16 10:59 Dose: 5 mg Oxycodone/Acetaminophen (Percocet 5/325) 1 tab PO Q4H PRN PRN Reason: Pain, Moderate (4-6) Last Admin: 10/25/16 10:59 Dose: 1 tab Phenol (Chloraseptic) 1 spray MM PRN PRN PRN Reason: Sore Throat Last Admin: 10/23/16 16:10 Dose: 1 spray Tamsulosin HCl (Flomax) 0.4 mg PO QDAY [facility] Last Admin: 10/25/16 10:30 Dose: 0.4 mg Exam - Constitutional Vitals: Temp Pulse Resp BP Pulse Ox 99.8 F H 88 18 114/75 98 10/25/16 14:58 10/25/16 14:58 10/25/16 14:58 10/25/16 14:58 10/25/16 08:10 Results - Labs CBC & Chem 7: 10/25/16 10:10 10/24/16 07:07 Labs: Abnormal lab results 10/25/16 Range/Units 10:10 WBC 3.2 L (4.5-11.0) K/mm3 RBC 3.45 L (3.65-5.03) M/mm3 Hgb 9.8 L (11.8-15.2) gm/dl Hct 29.5 L (35.5-45.6) % RDW 18.0 H (13.2-15.2) %
[2016-10-25] MEDS: HABITROL TD SCH (22:45)
[2016-10-26] MEDS: HEPARIN SUB-Q SCH ×3 (07:18→22:13)
[2016-10-26] MEDS: NACL 0.9% 1000 ML 1,000 ML IV SCH ×2 (09:54→22:20)
[2016-10-26] MEDS: PROSCAR PO SCH (09:55)
[2016-10-26] MEDS: ROCEPHIN/NS 1 GM/50 ML 1 GM/50 ML BAG IV SCH (09:55)
[2016-10-26] MEDS: FLOMAX PO SCH (09:55)
[2016-10-26] MEDS: PROLIXIN HCL PO SCH ×2 (09:56→22:11)
[2016-10-26] MEDS: PEPCID PO SCH (09:56)
[2016-10-26] MEDS: FOLVITE PO SCH (09:56)
[2016-10-26] MEDS: COREG PO SCH ×2 (10:44→22:12)
[2016-10-26] MEDS: DIFLUCAN PO SCH (12:22)
--- NOTE | 2016-10-26 13:18 | Progress Note ---
Subjective Date of service: 10/26/16 Interval history: Patient Name: JUANITA BUSTILLO JR Date of : 1950 Patient Status: Inpatient Attending Provider: ZACHARY GONZALEZ Date: 10/26/16 01.20 PM Initialization Date: 10/26/16 [place] [facility] note Assessment and Plan (1) Chronic lymphocytic leukemia (CLL), B-cell dx 2016 CR with BR chemo Current Visit: Yes Status: Chronic Qualifiers: Leukemia Active/Remission status: in remission Qualified Code(s): C91.11 - Chronic lymphocytic leukemia of B-cell type in remission Plan to address problem: Follow up with Dr. Scott ( mt) as outpatient . will stop Rituxan therapy due to age PS and comorbidites and Neutropenia effect (2) UTI (urinary tract infection) Current Visit: Yes Status: Acute Qualifiers: Urinary tract infection type: U Hematuria presence: H Indwelling urinary catheter type: I Encounter type: E Plan to address problem: Continue with Ceftrioxone. Urology following. (3) Oral candidiasis Current Visit: Yes Status: Acute Plan to address problem: Continue on Fluconizole. Leukopenia from Rituxa? infection? improving. monitor Anemia normocytic- Continue folic acid 1mg. No iron for now. transfuse if hgb< 7.5 monitor and will fu as outpt. Subjective Fairly comfortable at this time. mild fatigue. no fever or chills Currently on Ceftrioxone and Fluconizole. discussed current labs, clinical condition and next steps Objective - Constitutional Vitals: Last Vital Signs Temp 100.1 F H 10/25/16 08:10 Pulse 97 H 10/25/16 08:10 Resp 20 10/25/16 08:10 BP 157/85 10/25/16 08:10 Pulse Ox 98 10/25/16 08:10 Pain Intensity (0-10): denies any pain General appearance: no acute distress Performance status: 3-limited selfcare - EENT Eyes: PERRL ENT: hearing intact - Neck Neck: supple - Respiratory Respiratory effort: Positive: normal Respiratory: bilateral: rhonchi (Few rhonchi) - Cardiovascular Rhythm: regular Heart Sounds: Present: S1 & S2 Extremities: no ischemia Extremity abnormal: edema, other (Multiple healing excoriations) - Gastrointestinal General gastrointestinal: Present: soft, non-tender, normal bowel sounds Rectal Exam: deferred - Genitourinary Male genitourinary: Present: deferred - Integumentary Integumentary: clear, warm, dry - Musculoskeletal Musculoskeletal: generalized weakness - Psychiatric Psychiatric: appropriate mood/affect, cooperative - Labs Lab Results: Laboratory Results - last 24 hr 10/25/16 10:10 WBC 3.2 L RBC 3.45 L Hgb 9.8 L Hct 29.5 L MCV 86 MCH 29 MCHC 33 RDW 18.0 H Plt Count 436 Objective - Constitutional Vitals: Vital Signs - 12hr 10/26/16 10/26/16 01:27 08:00 Temperature 98.7 F 98.8 F Pulse Rate [ 91 H 92 H Right Radial] Respiratory 18 18 Rate Blood Pressure 138/79 128/80 [Right Arm] O2 Sat by Pulse 96 98 Oximetry - Labs CBC & Chem 7: 10/25/16 10:10 10/24/16 07:07 Labs: Abnormal lab results 10/23/16 Range/Units 21:29 Haptoglobin 492 H (43-212) mg/dL
[2016-10-26] MEDS: PERCOCET 5/325 PO PRN ×2 (14:00→22:11)
--- NOTE | 2016-10-26 14:57 | Progress Note ---
Assessment and Plan Assessment and plan: Complicated urinary tract infection. He has had a Merino catheter in for about 1 week. Continue Rocephin as recommended by ID physician Urine cultures show Klebsiella pneumonia. ID physician following Sepsis secondary to urinary tract infection. Continue Rocephin. History of CLL. Undergoing treatment by oncologist. Hypertension. Blood pressure stable Oral candidiasis. On Diflucan DVT prophylaxis Full code status Leg ulcer, blisters . Wound care nurse managing. Disposition. Patient and requested rehabilitation placement. He is medically stable to go to rehabilitation. Awaiting placement. I discussed with case management History Interval history: Feels better, Generalized weakness improving, No abdominal pain, No fever Hospitalist Physical - Physical exam Narrative exam: Gen appearance: not in acute distress, HEENT: Normocephalic, atraumatic Neck : supple, no JVD Lungs: Clear to auscultation bilaterally, no crackles, no wheezes. Heart : S1 and S2 regular, no murmurs rubs or gallop, Abdomen: soft non-tender, non-distended, normal bowel sounds Extremities: No edema no clubbing or cyanosis, leg blisters and ulcer Neuro :awake alert oriented, no focal signs Psych :appropriate mood : Indwelling Merino catheter - Constitutional Vitals: Temp Pulse Resp BP Pulse Ox 98.8 F 92 H 18 128/80 98 10/26/16 08:00 10/26/16 08:00 10/26/16 08:00 10/26/16 08:00 10/26/16 08:00 General appearance: Present: mild distress, well-nourished, other (chronically ill looking) Results - Labs CBC & Chem 7: 10/25/16 10:10 10/24/16 07:07 Labs: Laboratory Last Values WBC 3.2 K/mm3 (4.5-11.0) L 10/25/16 10:10 RBC 3.45 M/mm3 (3.65-5.03) L 10/25/16 10:10 Hgb 9.8 gm/dl (11.8-15.2) L 10/25/16 10:10 Hct 29.5 % (35.5-45.6) L 10/25/16 10:10 MCV 86 fl (84-94) 10/25/16 10:10 MCH 29 pg (28-32) 10/25/16 10:10 MCHC 33 % (32-34) 10/25/16 10:10 RDW 18.0 % (13.2-15.2) H 10/25/16 10:10 Plt Count 436 K/mm3 (140-440) 10/25/16 10:10 Add Manual Diff Complete 10/22/16 15:23 Total Counted 100 10/22/16 15:23 Seg Neuts % (Manual) 71.0 % (40.0-70.0) H 10/22/16 15:23 Band Neutrophils % 0 % 10/22/16 15:23 Lymphocytes % (Manual) 17.0 % (13.4-35.0) 10/22/16 15:23 Reactive Lymphs % (Man) 0 % 10/22/16 15:23 Monocytes % (Manual) 12.0 % (0.0-7.3) H 10/22/16 15:23 Eosinophils % (Manual) 0 % (0.0-4.3) 10/22/16 15:23 Basophils % (Manual) 0 % (0.0-1.8) 10/22/16 15:23 Metamyelocytes % 0 % 10/22/16 15:23 Myelocytes % 0 % 10/22/16 15:23 Promyelocytes % 0 % 10/22/16 15:23 Blast Cells % 0 % 10/22/16 15:23 Nucleated RBC % Not Reportable 10/22/16 15:23 Seg Neutrophils # Man 1.6 K/mm3 (1.8-7.7) L 10/22/16 15:23 Band Neutrophils # 0.0 K/mm3 10/22/16 15:23 Lymphocytes # (Manual) 0.4 K/mm3 (1.2-5.4) L 10/22/16 15:23 Abs React Lymphs (Man) 0.0 K/mm3 10/22/16 15:23 Monocytes # (Manual) 0.3 K/mm3 (0.0-0.8) 10/22/16 15:23 Eosinophils # (Manual) 0.0 K/mm3 (0.0-0.4) 10/22/16 15:23 Basophils # (Manual) 0.0 K/mm3 (0.0-0.1) 10/22/16 15:23 Metamyelocytes # 0.0 K/mm3 10/22/16 15:23 Myelocytes # 0.0 K/mm3 10/22/16 15:23 Promyelocytes # 0.0 K/mm3 10/22/16 15:23 Blast Cells # 0.0 K/mm3 10/22/16 15:23 WBC Morphology Not Reportable 10/22/16 15:23 Hypersegmented Neuts Not Reportable 10/22/16 15:23 Hyposegmented Neuts Not Reportable 10/22/16 15:23 Hypogranular Neuts Not Reportable 10/22/16 15:23 Smudge Cells Not Reportable 10/22/16 15:23 Toxic Granulation Not Reportable 10/22/16 15:23 Toxic Vacuolation Not Reportable 10/22/16 15:23 Dohle Bodies Not Reportable 10/22/16 15:23 Pelger-Huet Anomaly Not Reportable 10/22/16 15:23 J Luis Rods Not Reportable 10/22/16 15:23 Platelet Estimate Consistent w auto 10/22/16 15:23 Clumped Platelets Not Reportable 10/22/16 15:23 Plt Clumps, EDTA Not Reportable 10/22/16 15:23 Large Platelets 1+ 10/22/16 15:23 Giant Platelets Rare 10/22/16 15:23 Platelet Satelliting Not Reportable 10/22/16 15:23 Plt Morphology Comment Not Reportable 10/22/16 15:23 RBC Morphology Not Reportable 10/22/16 15:23 Dimorphic RBCs Not Reportable 10/22/16 15:23 Polychromasia Not Reportable 10/22/16 15:23 Hypochromasia Not Reportable 10/22/16 15:23 Poikilocytosis Not Reportable 10/22/16 15:23 Anisocytosis 3+ 10/22/16 15:23 Microcytosis Not Reportable 10/22/16 15:23 Macrocytosis Not Reportable 10/22/16 15:23 Spherocytes Not Reportable 10/22/16 15:23 Pappenheimer Bodies Not Reportable 10/22/16 15:23 Sickle Cells Not Reportable 10/22/16 15:23 Target Cells Rare 10/22/16 15:23 Tear Drop Cells Not Reportable 10/22/16 15:23 Ovalocytes Few 10/22/16 15:23 Helmet Cells Not Reportable 10/22/16 15:23 [place] Bodies Not Reportable 10/22/16 15:23 [place] Rings Not Reportable 10/22/16 15:23 Sean Cells Not Reportable 10/22/16 15:23 Bite Cells Not Reportable 10/22/16 15:23 Crenated Cell Not Reportable 10/22/16 15:23 Elliptocytes Not Reportable 10/22/16 15:23 Acanthocytes (Spur) Not Reportable 10/22/16 15:23 Rouleaux Not Reportable 10/22/16 15:23 Hemoglobin C Crystals Not Reportable 10/22/16 15:23 Schistocytes Rare 10/22/16 15:23 Malaria parasites Not Reportable 10/22/16 15:23 Percent Retic 1.81 % (0.78-2.58) 10/23/16 21:29 Vincent Bodies Not Reportable 10/22/16 15:23 Haptoglobin 492 mg/dL (43-212) H 10/23/16 21:29 Hem Pathologist Commnt No 10/22/16 15:23 PT 14.1 Sec. (12.2-14.9) 10/22/16 15:32 INR 1.10 (0.87-1.13) 10/22/16 15:32 VBG pH 7.417 (7.320-7.420) 10/22/16 15:32 Sodium 137 mmol/L (137-145) 10/24/16 07:07 Potassium 3.9 mmol/L (3.6-5.0) 10/24/16 07:07 Chloride 99.6 mmol/L (98-107) 10/24/16 07:07 Carbon Dioxide 26 mmol/L (22-30) 10/24/16 07:07 Anion Gap 15 mmol/L 10/24/16 07:07 BUN 6 mg/dL (9-20) L 10/24/16 07:07 Creatinine 0.7 mg/dL (0.8-1.5) L 10/24/16 07:07 Estimated GFR > 60 ml/min 10/24/16 07:07 BUN/Creatinine Ratio 8.57 % 10/24/16 07:07 Glucose 93 mg/dL (75-100) 10/24/16 07:07 Lactic Acid 1.0 mmol/L (0.7-2.0) 10/22/16 16:41 Calcium 7.8 mg/dL (8.4-10.2) L 10/24/16 07:07 Iron 18 ug/dL (49-181) L 10/23/16 21:29 TIBC 163 mcg/dL (250-450) L 10/23/16 21:29 Ferritin 1321.0 ng/mL (13.0-400.0) H 10/23/16 21:29 Total Bilirubin 0.6 mg/dL (0.1-1.2) 10/22/16 15:23 AST 71 units/L (5-40) H 10/22/16 15:23 ALT 55 units/L (7-56) 10/22/16 15:23 Alkaline Phosphatase 68 units/L (35-129) 10/22/16 15:23 Total Protein 5.3 g/dL (6.3-8.2) L 10/22/16 15:23 Albumin 2.6 g/dL (3.9-5) L 10/22/16 15:23 Albumin/Globulin Ratio 1.0 % 10/22/16 15:23 Vitamin B12 1098 pg/mL (211-911) H 10/23/16 21:29 Folate 6.83 ng/mL (7.3-26.0) L 10/23/16 21:29 Urine Color Yellow (Yellow) 10/22/16 15:00 Urine Turbidity Clear (Clear) 10/22/16 15:00 Urine pH 7.0 (5.0-7.0) 10/22/16 15:00 Ur Specific [place] 1.010 (1.003-1.030) 10/22/16 15:00 Urine Protein <15 mg/dl mg/dL (Negative) 10/22/16 15:00 Urine Glucose (UA) Neg mg/dL (Negative) 10/22/16 15:00 Urine Ketones Neg mg/dL (Negative) 10/22/16 15:00 Urine Blood Mod (Negative) 10/22/16 15:00 Urine Nitrite Pos (Negative) 10/22/16 15:00 Urine Bilirubin Neg (Negative) 10/22/16 15:00 Urine Urobilinogen 2.0 mg/dL (<2.0) 10/22/16 15:00 Ur Leukocyte Esterase Mod (Negative) 10/22/16 15:00 Urine WBC (Auto) 15.0 /HPF (0.0-6.0) H 10/22/16 15:00 Urine RBC (Auto) 1.0 /HPF (0.0-6.0) 10/22/16 15:00 U Epithel Cells (Auto) < 1.0 /HPF (0-13.0) 10/22/16 15:00 Urine Bacteria (Auto) 2+ /HPF (Negative) 10/22/16 15:00 Urine Mucus Few /HPF 10/22/16 15:00 Direct Antiglob Test Negative 10/23/16 21:29 ROBBI, Poly Interpret Negative 10/23/16 21:29
[2016-10-26] MEDS: HABITROL TD SCH (20:07)
[2016-10-26] MEDS: ROXICODONE PO PRN (22:12)
[2016-10-27] MEDS: HEPARIN SUB-Q SCH ×3 (05:13→21:53)
[2016-10-27] MEDS: PERCOCET 5/325 PO PRN ×3 (10:00→21:47)
[2016-10-27] MEDS: ROCEPHIN/NS 1 GM/50 ML 1 GM/50 ML BAG IV SCH (10:01)
[2016-10-27] MEDS: NACL 0.9% 1000 ML 1,000 ML IV SCH ×2 (10:01→21:52)
[2016-10-27] MEDS: FOLVITE PO SCH (10:01)
[2016-10-27] MEDS: COREG PO SCH ×2 (10:02→21:51)
[2016-10-27] MEDS: PEPCID PO SCH (10:02)
[2016-10-27] MEDS: FLOMAX PO SCH (10:02)
[2016-10-27] MEDS: PROSCAR PO SCH (10:03)
[2016-10-27] MEDS: PROLIXIN HCL PO SCH ×2 (10:04→21:47)
--- NOTE | 2016-10-27 10:34 | Progress Note ---
Assessment and Plan Assessment and plan: Complicated urinary tract infection. He has had a Merino catheter in for about 1 week. Continue Rocephin as recommended by ID physician Urine cultures show Klebsiella pneumonia. ID physician following. He is medically stable for discharge. He is awaiting placement Sepsis secondary to urinary tract infection. Continue Rocephin. History of CLL. Undergoing treatment by oncologist. Discussed with Dr. Scott Hypertension. Blood pressure stable Oral candidiasis. continue Diflucan DVT prophylaxis Full code status Leg ulcer, blisters . Wound care nurse managing. Disposition. Patient and requested rehabilitation placement. He is medically stable to go to rehabilitation. Awaiting placement. I discussed with case management History Interval history: Feels better, Generalized weakness improving, No abdominal pain, Hospitalist Physical - Physical exam Narrative exam: Gen appearance: not in acute distress, HEENT: Normocephalic, atraumatic Neck : supple, no JVD Lungs: Clear to auscultation bilaterally, no crackles, no wheezes. Heart : S1 and S2 regular, no murmurs rubs or gallop, Abdomen: soft non-tender, non-distended, normal bowel sounds Extremities: No edema no clubbing or cyanosis, leg blisters and ulcer covered with dressing Neuro :awake alert oriented, no focal signs Psych :appropriate mood : Indwelling Merino catheter - Constitutional Vitals: Temp Pulse Resp BP Pulse Ox 98.4 F 88 18 144/78 97 10/27/16 08:00 10/27/16 10:02 10/27/16 08:00 10/27/16 10:02 10/27/16 08:00 General appearance: Present: mild distress, well-nourished, other (chronically ill looking) Results - Labs CBC & Chem 7: 10/25/16 10:10 10/24/16 07:07 Labs: Laboratory Last Values WBC 3.2 K/mm3 (4.5-11.0) L 10/25/16 10:10 RBC 3.45 M/mm3 (3.65-5.03) L 10/25/16 10:10 Hgb 9.8 gm/dl (11.8-15.2) L 10/25/16 10:10 Hct 29.5 % (35.5-45.6) L 10/25/16 10:10 MCV 86 fl (84-94) 10/25/16 10:10 MCH 29 pg (28-32) 10/25/16 10:10 MCHC 33 % (32-34) 10/25/16 10:10 RDW 18.0 % (13.2-15.2) H 10/25/16 10:10 Plt Count 436 K/mm3 (140-440) 10/25/16 10:10 Add Manual Diff Complete 10/22/16 15:23 Total Counted 100 10/22/16 15:23 Seg Neuts % (Manual) 71.0 % (40.0-70.0) H 10/22/16 15:23 Band Neutrophils % 0 % 10/22/16 15:23 Lymphocytes % (Manual) 17.0 % (13.4-35.0) 10/22/16 15:23 Reactive Lymphs % (Man) 0 % 10/22/16 15:23 Monocytes % (Manual) 12.0 % (0.0-7.3) H 10/22/16 15:23 Eosinophils % (Manual) 0 % (0.0-4.3) 10/22/16 15:23 Basophils % (Manual) 0 % (0.0-1.8) 10/22/16 15:23 Metamyelocytes % 0 % 10/22/16 15:23 Myelocytes % 0 % 10/22/16 15:23 Promyelocytes % 0 % 10/22/16 15:23 Blast Cells % 0 % 10/22/16 15:23 Nucleated RBC % Not Reportable 10/22/16 15:23 Seg Neutrophils # Man 1.6 K/mm3 (1.8-7.7) L 10/22/16 15:23 Band Neutrophils # 0.0 K/mm3 10/22/16 15:23 Lymphocytes # (Manual) 0.4 K/mm3 (1.2-5.4) L 10/22/16 15:23 Abs React Lymphs (Man) 0.0 K/mm3 10/22/16 15:23 Monocytes # (Manual) 0.3 K/mm3 (0.0-0.8) 10/22/16 15:23 Eosinophils # (Manual) 0.0 K/mm3 (0.0-0.4) 10/22/16 15:23 Basophils # (Manual) 0.0 K/mm3 (0.0-0.1) 10/22/16 15:23 Metamyelocytes # 0.0 K/mm3 10/22/16 15:23 Myelocytes # 0.0 K/mm3 10/22/16 15:23 Promyelocytes # 0.0 K/mm3 10/22/16 15:23 Blast Cells # 0.0 K/mm3 10/22/16 15:23 WBC Morphology Not Reportable 10/22/16 15:23 Hypersegmented Neuts Not Reportable 10/22/16 15:23 Hyposegmented Neuts Not Reportable 10/22/16 15:23 Hypogranular Neuts Not Reportable 10/22/16 15:23 Smudge Cells Not Reportable 10/22/16 15:23 Toxic Granulation Not Reportable 10/22/16 15:23 Toxic Vacuolation Not Reportable 10/22/16 15:23 Dohle Bodies Not Reportable 10/22/16 15:23 Pelger-Huet Anomaly Not Reportable 10/22/16 15:23 J Luis Rods Not Reportable 10/22/16 15:23 Platelet Estimate Consistent w auto 10/22/16 15:23 Clumped Platelets Not Reportable 10/22/16 15:23 Plt Clumps, EDTA Not Reportable 10/22/16 15:23 Large Platelets 1+ 10/22/16 15:23 Giant Platelets Rare 10/22/16 15:23 Platelet Satelliting Not Reportable 10/22/16 15:23 Plt Morphology Comment Not Reportable 10/22/16 15:23 RBC Morphology Not Reportable 10/22/16 15:23 Dimorphic RBCs Not Reportable 10/22/16 15:23 Polychromasia Not Reportable 10/22/16 15:23 Hypochromasia Not Reportable 10/22/16 15:23 Poikilocytosis Not Reportable 10/22/16 15:23 Anisocytosis 3+ 10/22/16 15:23 Microcytosis Not Reportable 10/22/16 15:23 Macrocytosis Not Reportable 10/22/16 15:23 Spherocytes Not Reportable 10/22/16 15:23 Pappenheimer Bodies Not Reportable 10/22/16 15:23 Sickle Cells Not Reportable 10/22/16 15:23 Target Cells Rare 10/22/16 15:23 Tear Drop Cells Not Reportable 10/22/16 15:23 Ovalocytes Few 10/22/16 15:23 Helmet Cells Not Reportable 10/22/16 15:23 [place] Bodies Not Reportable 10/22/16 15:23 [place] Rings Not Reportable 10/22/16 15:23 Sean Cells Not Reportable 10/22/16 15:23 Bite Cells Not Reportable 10/22/16 15:23 Crenated Cell Not Reportable 10/22/16 15:23 Elliptocytes Not Reportable 10/22/16 15:23 Acanthocytes (Spur) Not Reportable 10/22/16 15:23 Rouleaux Not Reportable 10/22/16 15:23 Hemoglobin C Crystals Not Reportable 10/22/16 15:23 Schistocytes Rare 10/22/16 15:23 Malaria parasites Not Reportable 10/22/16 15:23 Percent Retic 1.81 % (0.78-2.58) 10/23/16 21:29 Vincent Bodies Not Reportable 10/22/16 15:23 Haptoglobin 492 mg/dL (43-212) H 10/23/16 21:29 Hem Pathologist Commnt No 10/22/16 15:23 PT 14.1 Sec. (12.2-14.9) 10/22/16 15:32 INR 1.10 (0.87-1.13) 10/22/16 15:32 VBG pH 7.417 (7.320-7.420) 10/22/16 15:32 Sodium 137 mmol/L (137-145) 10/24/16 07:07 Potassium 3.9 mmol/L (3.6-5.0) 10/24/16 07:07 Chloride 99.6 mmol/L (98-107) 10/24/16 07:07 Carbon Dioxide 26 mmol/L (22-30) 10/24/16 07:07 Anion Gap 15 mmol/L 10/24/16 07:07 BUN 6 mg/dL (9-20) L 10/24/16 07:07 Creatinine 0.7 mg/dL (0.8-1.5) L 10/24/16 07:07 Estimated GFR > 60 ml/min 10/24/16 07:07 BUN/Creatinine Ratio 8.57 % 10/24/16 07:07 Glucose 93 mg/dL (75-100) 10/24/16 07:07 Lactic Acid 1.0 mmol/L (0.7-2.0) 10/22/16 16:41 Calcium 7.8 mg/dL (8.4-10.2) L 10/24/16 07:07 Iron 18 ug/dL (49-181) L 10/23/16 21:29 TIBC 163 mcg/dL (250-450) L 10/23/16 21:29 Ferritin 1321.0 ng/mL (13.0-400.0) H 10/23/16 21:29 Total Bilirubin 0.6 mg/dL (0.1-1.2) 10/22/16 15:23 AST 71 units/L (5-40) H 10/22/16 15:23 ALT 55 units/L (7-56) 10/22/16 15:23 Alkaline Phosphatase 68 units/L (35-129) 10/22/16 15:23 Total Protein 5.3 g/dL (6.3-8.2) L 10/22/16 15:23 Albumin 2.6 g/dL (3.9-5) L 10/22/16 15:23 Albumin/Globulin Ratio 1.0 % 10/22/16 15:23 Vitamin B12 1098 pg/mL (211-911) H 10/23/16 21:29 Folate 6.83 ng/mL (7.3-26.0) L 10/23/16 21:29 Urine Color Yellow (Yellow) 10/22/16 15:00 Urine Turbidity Clear (Clear) 10/22/16 15:00 Urine pH 7.0 (5.0-7.0) 10/22/16 15:00 Ur Specific [place] 1.010 (1.003-1.030) 10/22/16 15:00 Urine Protein <15 mg/dl mg/dL (Negative) 10/22/16 15:00 Urine Glucose (UA) Neg mg/dL (Negative) 10/22/16 15:00 Urine Ketones Neg mg/dL (Negative) 10/22/16 15:00 Urine Blood Mod (Negative) 10/22/16 15:00 Urine Nitrite Pos (Negative) 10/22/16 15:00 Urine Bilirubin Neg (Negative) 10/22/16 15:00 Urine Urobilinogen 2.0 mg/dL (<2.0) 10/22/16 15:00 Ur Leukocyte Esterase Mod (Negative) 10/22/16 15:00 Urine WBC (Auto) 15.0 /HPF (0.0-6.0) H 10/22/16 15:00 Urine RBC (Auto) 1.0 /HPF (0.0-6.0) 10/22/16 15:00 U Epithel Cells (Auto) < 1.0 /HPF (0-13.0) 10/22/16 15:00 Urine Bacteria (Auto) 2+ /HPF (Negative) 10/22/16 15:00 Urine Mucus Few /HPF 10/22/16 15:00 Direct Antiglob Test Negative 10/23/16 21:29 ROBBI, Poly Interpret Negative 10/23/16 21:29
[2016-10-27] MEDS: ROXICODONE PO PRN ×3 (11:09→21:46)
--- NOTE | 2016-10-27 12:52 | Progress Note ---
Subjective Date of service: 10/27/16 Principal diagnosis: CLL Interval history: Date of service: 10/27/16Friday Patient Name: JUANITA BUSTILLO JR Date of : 1950 Patient Status: Inpatient Attending Provider: ZACHARY GONZALEZ Date: 10/27/16 12.50 PM Initialization Date: 10/27/16 [place] [facility] note Assessment and Plan (1) Chronic lymphocytic leukemia (CLL), B-cell dx 2016 CR with BR chemo in remission Follow up with Dr. Scott ( pr) as outpatient in 3 weeks . will stop Rituxan therapy due to age PS and comorbidites and Neutropenia effect i dont think anemia is related to CLL . Plan discussed with (2) UTI (urinary tract infection) Continue with Ceftrioxone. Urology following. (3) Oral candidiasis Continue on Fluconizole. 4) Leukopenia from Rituxan? infection? improving. monitor wbc >3 k, 5) Anemia normocytic- Continue folic acid 1mg. No iron for now. transfuse if hgb<7.5 monitor and will fu as outpt. 6) Deconditioning- worse. advise aggressive PT here and then Rehab 7) Malnutrition -- suggest protein supplements Subjective no headache. he has question about heparin . no bleeding. Need for ambulation discussed. no diarrhea. no melena Fairly comfortable at this time. mild fatigue. no fever or chills Currently on Ceftrioxone and Fluconizole. discussed current labs, clinical condition and next steps Objective - Constitutional Vitals: Last Vital Signs Temp 100.1 F H 10/25/16 08:10 Pulse 97 H 10/25/16 08:10 Resp 20 10/25/16 08:10 BP 157/85 10/25/16 08:10 Pulse Ox 98 10/25/16 08:10 Pain Intensity (0-10): denies any pain General appearance: no acute distress Performance status: 3-limited selfcare - EENT Eyes: PERRL ENT: hearing intact - Neck Neck: supple - Respiratory Respiratory effort: Positive: normal Respiratory: bilateral: rhonchi (Few rhonchi) - Cardiovascular Rhythm: regular Heart Sounds: Present: S1 & S2 Extremities: no ischemia Extremity abnormal: edema, other (Multiple healing excoriations) - Gastrointestinal General gastrointestinal: Present: soft, non-tender, normal bowel sounds Rectal Exam: deferred - Genitourinary Male genitourinary: Present: deferred - Integumentary Integumentary: clear, warm, dry - Musculoskeletal Musculoskeletal: generalized weakness - Psychiatric Psychiatric: appropriate mood/affect, cooperative - Labs Lab Results: Laboratory Results - last 24 hr 10/25/16 10:10 WBC 3.2 L RBC 3.45 L Hgb 9.8 L Hct 29.5 L MCV 86 MCH 29 MCHC 33 RDW 18.0 H Plt Count 436 Objective - Constitutional Vitals: Vital Signs - 12hr 10/26/16 10/26/16 01:27 08:00 Temperature 98.7 F 98.8 F Pulse Rate [ 91 H 92 H Right Radial] Respiratory 18 18 Rate Blood Pressure 138/79 128/80 [Right Arm] O2 Sat by Pulse 96 98 Oximetry - Labs CBC & Chem 7: 10/25/16 10:10 10/24/16 07:07 Labs: Abnormal lab results 10/23/16 Range/Units 21:29 Haptoglobin 492 H (43-212) mg/dL Objective - Constitutional Vitals: Vital Signs - 12hr 10/27/16 10/27/16 08:00 10:02 Temperature 98.4 F Pulse Rate 88 Pulse Rate [ 88 Right Radial] Respiratory 18 Rate Blood Pressure 144/78 Blood Pressure 144/78 [Right Arm] O2 Sat by Pulse 97 Oximetry - Labs CBC & Chem 7: 10/25/16 10:10 10/24/16 07:07
[2016-10-27] MEDS ORDERED: MIRALAX 3350 PO PRN (13:14)
[2016-10-27] MEDS: DIFLUCAN PO SCH (16:08)
--- NOTE | 2016-10-27 16:11 | Progress Note ---
Assessment and Plan Mr Gill is a 66 y/o AA man who is followed with a known history of hypertension , CLL on previous chemotherapy, indwelling port, chronic indwelling Merino catheter, and history of ureteral stones who presents for admission to with fever, chills, malaise and anorexia. He is seen with a low-grade fever, an active urinary sediment, urine cultures positive for Klebsiella pneumoniae, and mild neutropenia. Antibiotics: Ceftriaxone 1 g IV daily ( 10/24 -> Fluconazole 100 mg IV/po ( 10/22 - > s/p: Zosyn 4.5 g IV every 8 hour ( 10/22 - 10/24) Conclusions: 1. Klebsiella UTI ( CAUTI) - R/O sepsis - Chronic Merino catheter - Renal ultrasound 10/24 - normal -blood cultures remain negative 2. CLL s/p chemotherapy ( last 08/23/16) - Neutropenia, improving 3. Hx of nephrolithiasis - s/p 12/28/14 cystoscopy with right ureteral stone basket extraction and right ureteral stent placement 4. Chronic lower extremity edema - Multiple superficial ulcers without secondary infection 5. Thrush Recommendations: -continue ceftriaxone while hospitalized. -Continue by mouth fluconazole for thrush -can switch to oral therapy (levaquin or cipro) on discharge to complete 7 days in view of negative blood cultures Subjective Date of service: 10/27/16 Principal diagnosis: CLL Interval history: Patient is doing well, no new events. He is comfortable. Objective - Constitutional Vitals: Selected Entries 10/27/16 10/27/16 08:00 10:02 Temperature 98.4 F Pulse Rate 88 Respiratory 18 Rate Blood Pressure 144/78 Blood Pressure 100 Mean General appearance: Present: no acute distress, well-nourished - EENT Eyes: PERRL, EOM intact, no scleral icterus, no conjunctival injection Ears: bilateral: normal - Neck Neck: supple, normal ROM, no enlarged thyroid - Respiratory Respiratory effort: normal Respiratory: bilateral: CTA - Breasts Breasts: deferred - Cardiovascular Rhythm: regular Heart Sounds: Present: S1 & S2 Extremities: no ischemia - Gastrointestinal General gastrointestinal: Present: soft, non-tender, normal bowel sounds - Genitourinary Male genitourinary: deferred - Integumentary Integumentary: clear, warm, dry - Musculoskeletal Musculoskeletal: strength equal bilaterally - Psychiatric Psychiatric: appropriate mood/affect, cooperative - Labs CBC & Chem 7: 10/25/16 10:10 10/24/16 07:07 Labs: Microbiology 10/22/16 15:00 Urine,Clean Catch Urine Culture - Final Klebsiella Pneumoniae 10/22/16 14:54 Peripheral/Venous Blood Culture - Final NO GROWTH AFTER 5 DAYS 10/22/16 14:54 Peripheral/Venous Blood Culture - Final NO GROWTH AFTER 5 DAYS Laboratory Tests 10/22/16 10/23/16 10/24/16 15:00 21:29 07:07 WBC 2.1 L Plt Count BUN Creatinine Estimated GFR Vitamin B12 1098 H Urine WBC (Auto) 15.0 H 10/24/16 10/25/16 07:07 10:10 WBC 3.2 L Plt Count 436 BUN 6 L Creatinine 0.7 L Estimated GFR > 60 Vitamin B12 Urine WBC (Auto)
[2016-10-27] MEDS: COLACE PO SCH ×2 (17:37→21:47)
[2016-10-27] MEDS: HABITROL TD SCH (21:52)
[2016-10-28] MEDS: NACL 0.9% 1000 ML 1,000 ML IV SCH ×2 (05:30→19:09)
[2016-10-28] MEDS: HEPARIN SUB-Q SCH ×4 (06:31→22:16)
--- NOTE | 2016-10-28 09:38 | Progress Note ---
Assessment and Plan Assessment and plan: Complicated urinary tract infection. He has had a Merino catheter in for about 1 week brought to admission. Continue Rocephin iv . Urine cultures show Klebsiella pneumonia. ID physician following. He was medically stable for discharge, awaiting placement. However has a temperature of 102.9 this morning. Therefore, cannot be discharged today Sepsis secondary to urinary tract infection. Continue Rocephin. History of CLL. Undergoing treatment by oncologist. Discussed with Dr. Scott Hypertension. Blood pressure stable Oral candidiasis. continue Diflucan DVT prophylaxis with Heparin. Full code status Leg ulcer, blisters . Wound care nurse managing. Disposition. Patient and requested rehabilitation placement. Awaiting placement. He may be stable for discharge once fever subsided, probably tomorrow I discussed with case management. History Interval history: Fever of 102.9 this morning Generalized weakness improving, No abdominal pain, Hospitalist Physical - Physical exam Narrative exam: Gen appearance: not in acute distress, HEENT: Normocephalic, atraumatic Neck : supple, no JVD Lungs: Clear to auscultation bilaterally, no crackles, no wheezes. Heart : S1 and S2 regular, no murmurs rubs or gallop, Abdomen: soft non-tender, non-distended, normal bowel sounds Extremities: No edema no clubbing or cyanosis, leg blisters and ulcer covered with dressing Neuro :awake alert oriented, no focal signs Psych :appropriate mood : Indwelling Merino catheter - Constitutional Vitals: Temp Pulse Resp BP Pulse Ox 102.9 F H 103 H 18 160/81 98 10/28/16 08:05 10/28/16 08:05 10/28/16 08:05 10/28/16 08:05 10/28/16 08:05 General appearance: Present: no acute distress, well-nourished Results - Labs CBC & Chem 7: 10/28/16 10:47 10/28/16 10:47 Labs: Laboratory Last Values WBC 3.2 K/mm3 (4.5-11.0) L 10/25/16 10:10 RBC 3.45 M/mm3 (3.65-5.03) L 10/25/16 10:10 Hgb 9.8 gm/dl (11.8-15.2) L 10/25/16 10:10 Hct 29.5 % (35.5-45.6) L 10/25/16 10:10 MCV 86 fl (84-94) 10/25/16 10:10 MCH 29 pg (28-32) 10/25/16 10:10 MCHC 33 % (32-34) 10/25/16 10:10 RDW 18.0 % (13.2-15.2) H 10/25/16 10:10 Plt Count 436 K/mm3 (140-440) 10/25/16 10:10 Add Manual Diff Complete 10/22/16 15:23 Total Counted 100 10/22/16 15:23 Seg Neuts % (Manual) 71.0 % (40.0-70.0) H 10/22/16 15:23 Band Neutrophils % 0 % 10/22/16 15:23 Lymphocytes % (Manual) 17.0 % (13.4-35.0) 10/22/16 15:23 Reactive Lymphs % (Man) 0 % 10/22/16 15:23 Monocytes % (Manual) 12.0 % (0.0-7.3) H 10/22/16 15:23 Eosinophils % (Manual) 0 % (0.0-4.3) 10/22/16 15:23 Basophils % (Manual) 0 % (0.0-1.8) 10/22/16 15:23 Metamyelocytes % 0 % 10/22/16 15:23 Myelocytes % 0 % 10/22/16 15:23 Promyelocytes % 0 % 10/22/16 15:23 Blast Cells % 0 % 10/22/16 15:23 Nucleated RBC % Not Reportable 10/22/16 15:23 Seg Neutrophils # Man 1.6 K/mm3 (1.8-7.7) L 10/22/16 15:23 Band Neutrophils # 0.0 K/mm3 10/22/16 15:23 Lymphocytes # (Manual) 0.4 K/mm3 (1.2-5.4) L 10/22/16 15:23 Abs React Lymphs (Man) 0.0 K/mm3 10/22/16 15:23 Monocytes # (Manual) 0.3 K/mm3 (0.0-0.8) 10/22/16 15:23 Eosinophils # (Manual) 0.0 K/mm3 (0.0-0.4) 10/22/16 15:23 Basophils # (Manual) 0.0 K/mm3 (0.0-0.1) 10/22/16 15:23 Metamyelocytes # 0.0 K/mm3 10/22/16 15:23 Myelocytes # 0.0 K/mm3 10/22/16 15:23 Promyelocytes # 0.0 K/mm3 10/22/16 15:23 Blast Cells # 0.0 K/mm3 10/22/16 15:23 WBC Morphology Not Reportable 10/22/16 15:23 Hypersegmented Neuts Not Reportable 10/22/16 15:23 Hyposegmented Neuts Not Reportable 10/22/16 15:23 Hypogranular Neuts Not Reportable 10/22/16 15:23 Smudge Cells Not Reportable 10/22/16 15:23 Toxic Granulation Not Reportable 10/22/16 15:23 Toxic Vacuolation Not Reportable 10/22/16 15:23 Dohle Bodies Not Reportable 10/22/16 15:23 Pelger-Huet Anomaly Not Reportable 10/22/16 15:23 J Luis Rods Not Reportable 10/22/16 15:23 Platelet Estimate Consistent w auto 10/22/16 15:23 Clumped Platelets Not Reportable 10/22/16 15:23 Plt Clumps, EDTA Not Reportable 10/22/16 15:23 Large Platelets 1+ 10/22/16 15:23 Giant Platelets Rare 10/22/16 15:23 Platelet Satelliting Not Reportable 10/22/16 15:23 Plt Morphology Comment Not Reportable 10/22/16 15:23 RBC Morphology Not Reportable 10/22/16 15:23 Dimorphic RBCs Not Reportable 10/22/16 15:23 Polychromasia Not Reportable 10/22/16 15:23 Hypochromasia Not Reportable 10/22/16 15:23 Poikilocytosis Not Reportable 10/22/16 15:23 Anisocytosis 3+ 10/22/16 15:23 Microcytosis Not Reportable 10/22/16 15:23 Macrocytosis Not Reportable 10/22/16 15:23 Spherocytes Not Reportable 10/22/16 15:23 Pappenheimer Bodies Not Reportable 10/22/16 15:23 Sickle Cells Not Reportable 10/22/16 15:23 Target Cells Rare 10/22/16 15:23 Tear Drop Cells Not Reportable 10/22/16 15:23 Ovalocytes Few 10/22/16 15:23 Helmet Cells Not Reportable 10/22/16 15:23 Arias-Bunnlevel Bodies Not Reportable 10/22/16 15:23 [place] Rings Not Reportable 10/22/16 15:23 Gable Cells Not Reportable 10/22/16 15:23 Bite Cells Not Reportable 10/22/16 15:23 Crenated Cell Not Reportable 10/22/16 15:23 Elliptocytes Not Reportable 10/22/16 15:23 Acanthocytes (Spur) Not Reportable 10/22/16 15:23 Rouleaux Not Reportable 10/22/16 15:23 Hemoglobin C Crystals Not Reportable 10/22/16 15:23 Schistocytes Rare 10/22/16 15:23 Malaria parasites Not Reportable 10/22/16 15:23 Percent Retic 1.81 % (0.78-2.58) 10/23/16 21:29 Vincent Bodies Not Reportable 10/22/16 15:23 Haptoglobin 492 mg/dL (43-212) H 10/23/16 21:29 Hem Pathologist Commnt No 10/22/16 15:23 PT 14.1 Sec. (12.2-14.9) 10/22/16 15:32 INR 1.10 (0.87-1.13) 10/22/16 15:32 VBG pH 7.417 (7.320-7.420) 10/22/16 15:32 Sodium 137 mmol/L (137-145) 10/24/16 07:07 Potassium 3.9 mmol/L (3.6-5.0) 10/24/16 07:07 Chloride 99.6 mmol/L (98-107) 10/24/16 07:07 Carbon Dioxide 26 mmol/L (22-30) 10/24/16 07:07 Anion Gap 15 mmol/L 10/24/16 07:07 BUN 6 mg/dL (9-20) L 10/24/16 07:07 Creatinine 0.7 mg/dL (0.8-1.5) L 10/24/16 07:07 Estimated GFR > 60 ml/min 10/24/16 07:07 BUN/Creatinine Ratio 8.57 % 10/24/16 07:07 Glucose 93 mg/dL (75-100) 10/24/16 07:07 Lactic Acid 1.0 mmol/L (0.7-2.0) 10/22/16 16:41 Calcium 7.8 mg/dL (8.4-10.2) L 10/24/16 07:07 Iron 18 ug/dL (49-181) L 10/23/16 21:29 TIBC 163 mcg/dL (250-450) L 10/23/16 21:29 Ferritin 1321.0 ng/mL (13.0-400.0) H 10/23/16 21:29 Total Bilirubin 0.6 mg/dL (0.1-1.2) 10/22/16 15:23 AST 71 units/L (5-40) H 10/22/16 15:23 ALT 55 units/L (7-56) 10/22/16 15:23 Alkaline Phosphatase 68 units/L (35-129) 10/22/16 15:23 Total Protein 5.3 g/dL (6.3-8.2) L 10/22/16 15:23 Albumin 2.6 g/dL (3.9-5) L 10/22/16 15:23 Albumin/Globulin Ratio 1.0 % 10/22/16 15:23 Vitamin B12 1098 pg/mL (211-911) H 10/23/16 21:29 Folate 6.83 ng/mL (7.3-26.0) L 10/23/16 21:29 Urine Color Yellow (Yellow) 10/22/16 15:00 Urine Turbidity Clear (Clear) 10/22/16 15:00 Urine pH 7.0 (5.0-7.0) 10/22/16 15:00 Ur Specific [place] 1.010 (1.003-1.030) 10/22/16 15:00 Urine Protein <15 mg/dl mg/dL (Negative) 10/22/16 15:00 Urine Glucose (UA) Neg mg/dL (Negative) 10/22/16 15:00 Urine Ketones Neg mg/dL (Negative) 10/22/16 15:00 Urine Blood Mod (Negative) 10/22/16 15:00 Urine Nitrite Pos (Negative) 10/22/16 15:00 Urine Bilirubin Neg (Negative) 10/22/16 15:00 Urine Urobilinogen 2.0 mg/dL (<2.0) 10/22/16 15:00 Ur Leukocyte Esterase Mod (Negative) 10/22/16 15:00 Urine WBC (Auto) 15.0 /HPF (0.0-6.0) H 10/22/16 15:00 Urine RBC (Auto) 1.0 /HPF (0.0-6.0) 10/22/16 15:00 U Epithel Cells (Auto) < 1.0 /HPF (0-13.0) 10/22/16 15:00 Urine Bacteria (Auto) 2+ /HPF (Negative) 10/22/16 15:00 Urine Mucus Few /HPF 10/22/16 15:00 IgG 413 mg/dL (694-1618) L 10/23/16 21:29 Direct Antiglob Test Negative 10/23/16 21:29 ROBBI, Poly Interpret Negative 10/23/16 21:29
--- NOTE | 2016-10-28 10:30 | Consultation ---
REASON FOR CONSULTATION: Urinary retention. REFERRING PHYSICIAN: Darshan Devine MD HISTORY OF PRESENT ILLNESS: This patient is a 66-year-old gentleman known to our service for history of urinary retention, status post InterStim placement 07/01/2017. 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 The patient also has a history of lymphoma. He is under the care of Dr. Walton's group. The patient presented to the Emergency Room with UTI, was admitted for management. PAST MEDICAL HISTORY: Hypertension, spine disease, lymphoma, voiding dysfunction. PAST SURGICAL HISTORY: Cervical and lumbar spine surgery in the past, InterStim placement 05/31/2013, InterStim battery replaced 07/01/2016. PHYSICAL EXAMINATION: GENERAL: He is alert and oriented. VITAL SIGNS: BP 153/87, respirations are 12, pulse 80, temperature afebrile. BACK: He has chronic back pain. ABDOMEN: Soft. He has a Merino catheter draining ja colored urine. LABORATORY DATA: He had a renal ultrasound on 10/24/2016, was normal. Urine culture is positive for Klebsiella. ASSESSMENT AND PLAN: Urinary tract infection, complicated; lymphoma, managed by Dr. Walton's group; spine disease, the patient recently saw his spine doctor (Dr. Santos) and was noted he is not a surgical candidate. In light of these recommendations and management of his urinary retention, which is secondary to his spine disease, cannot be adequately managed with his InterStim. As we turn the InterStim up, he gets more pain. Long discussion with the patient and his , we agree with rehabilitation. We will keep the InterStim off, continue Merino catheter, change every 4-6 weeks. We can add an anticholinergic such as Toviaz or Ditropan as needed for bladder spasms, treat his UTI, may need suppression antibiotic therapy. We will defer to Infectious Disease recommendations. JOB# [id number] BRET/JERO
--- NOTE | 2016-10-28 10:31 | Progress Note ---
Assessment and Plan Mr Gill is a 66 y/o AA man who is followed with a known history of hypertension , CLL on previous chemotherapy, indwelling port, chronic indwelling Padgett catheter, and history of ureteral stones who presents for admission to with fever, chills, malaise and anorexia. He is seen with a low-grade fever, an active urinary sediment, urine cultures positive for Klebsiella pneumoniae, and mild neutropenia. Antibiotics: Ceftriaxone 1 g IV daily ( 10/24 -> Fluconazole 100 mg IV/po ( 10/22 - > s/p: Zosyn 4.5 g IV every 8 hour ( 10/22 - 10/24) Conclusions: 1. Klebsiella UTI ( CAUTI) - R/O sepsis - Chronic Padgett catheter - Renal ultrasound 10/24 - normal -blood cultures remain negative 2. CLL s/p chemotherapy ( last 08/23/16) - Neutropenia, improving, no repeat labs since 10/25 3. Hx of nephrolithiasis - s/p 12/28/14 cystoscopy with right ureteral stone basket extraction and right ureteral stent placement 4. Chronic lower extremity edema - Multiple superficial ulcers without secondary infection 5. Thrush 6) fever, recurrent. Patient was afebrile until today his temp was 102.9 Recommendations: -continue ceftriaxone while hospitalized. -Continue by mouth fluconazole for thrush -obtain urinalysis, urine culture, blood culture, cbc, cmp and cxr Subjective Date of service: 10/28/16 Principal diagnosis: CLL Interval history: Patient is doing okay, he denies having pain. He had a temp of 102.9 today. Objective - Constitutional Vitals: Selected Entries 10/28/16 10/28/16 00:05 08:05 Temperature 99.7 F H 102.9 F H Pulse Rate [ 103 H Left Radial] Respiratory 18 Rate O2 Sat by Pulse 98 Oximetry Blood Pressure 160/81 [Left Arm] Blood Pressure 107 Mean [Left Arm] General appearance: Present: no acute distress, well-nourished - EENT Eyes: PERRL, EOM intact, no scleral icterus, no conjunctival injection ENT: hearing intact, clear oral mucosa Ears: bilateral: normal - Neck Neck: supple, normal ROM, no enlarged thyroid, no masses or JVD - Respiratory Respiratory effort: normal Respiratory: bilateral: CTA - Breasts Breasts: deferred - Cardiovascular Rhythm: regular Heart Sounds: Present: S1 & S2 Extremities: no ischemia, pulses intact, No edema - Gastrointestinal General gastrointestinal: Present: soft, non-tender, normal bowel sounds Rectal Exam: deferred - Genitourinary Male genitourinary: deferred (padgett catheter in place) - Integumentary Integumentary: clear, warm, dry - Musculoskeletal Musculoskeletal: generalized weakness - Psychiatric Psychiatric: appropriate mood/affect, cooperative - Additional findings Additional findings: scabbed wounds on lower extremities - Labs CBC & Chem 7: 10/25/16 10:10 10/24/16 07:07 Labs: Microbiology 10/22/16 18:25 Nasal Wash Influenza Types A,B Antigen (MANDEEP) - Final 10/22/16 15:00 Urine,Clean Catch Urine Culture - Final Klebsiella Pneumoniae 10/22/16 14:54 Peripheral/Venous Blood Culture - Final NO GROWTH AFTER 5 DAYS 10/22/16 14:54 Peripheral/Venous Blood Culture - Final NO GROWTH AFTER 5 DAYS Laboratory Tests 10/22/16 10/23/16 10/23/16 15:00 21:29 21:29 WBC Plt Count Creatinine Ferritin 1321.0 H Urine WBC (Auto) 15.0 H IgG 413 L 10/24/16 10/25/16 07:07 10:10 WBC 3.2 L Plt Count 436 Creatinine 0.7 L Ferritin Urine WBC (Auto) IgG
[2016-10-28 11:19] LABS: Hematocrit 23.7 % (35.5-45.6); Hemoglobin 7.9 gm/dl (11.8-15.2); Mean Corpuscular HGB Conc 33 % (32-34); Mean Corpuscular Hemoglobin 29 pg (28-32); Mean Corpuscular Volume 86 fl (84-94); Platelet Count 444 K/mm3 (140-440); Red Blood Count 2.77 M/mm3 (3.65-5.03); Red Cell Distribution Width 18.2 % (13.2-15.2)
[2016-10-28 11:23] LABS: White Blood Count 2.2 K/mm3 (4.5-11.0)
[2016-10-28 11:43] LABS: Alanine Aminotransferase 154 units/L (7-56); Albumin 2.4 g/dL (3.9-5); Albumin/Globulin Ratio 0.9 %; Alkaline Phosphatase 78 units/L (35-129); Anion Gap 17 mmol/L; BUN/Creatinine Ratio 11.42; Bilirubin,Total 0.3 mg/dL (0.1-1.2); Blood Urea Nitrogen 8 mg/dL (9-20); Calcium 7.8 mg/dL (8.4-10.2); Carbon Dioxide 25 mmol/L (22-30); Chloride 95.6 mmol/L (98-107); Glucose 128 mg/dL (75-100); Potassium 3.6 mmol/L (3.6-5.0); Sodium 134 mmol/L (137-145); Total Protein 5.1 g/dL (6.3-8.2)
[2016-10-28 11:51] LABS: Basophils % (Manual) 0 % (0.0-1.8); Blastocytes % (Manual) 0 %; Eosinophils % (Manual) 0 % (0.0-4.3)
[2016-10-28 11:52] LABS: Acanthocytes 1+; Anisocytosis 1+; Burr Cells Few; Elliptocytes Few; Helmet Cells Rare; Microcytosis Few; Ovalocytes 1+; Poikilocytosis 1+; Schistocytes Rare; Target Cells Rare; Tear Drop Cells Few
[2016-10-28 11:53] LABS: Diff Status Complete; Large Platelets Few; Polychromasia Few
[2016-10-28] MEDS: COREG PO SCH ×2 (14:30→22:11)
[2016-10-28] MEDS: COLACE PO SCH ×2 (14:30→21:57)
[2016-10-28] MEDS: ROCEPHIN/NS 1 GM/50 ML 1 GM/50 ML BAG IV SCH (14:31)
[2016-10-28] MEDS: PROLIXIN HCL PO SCH ×2 (14:31→21:57)
[2016-10-28] MEDS: PROSCAR PO SCH (14:31)
[2016-10-28] MEDS: DIFLUCAN PO SCH (14:32)
[2016-10-28] MEDS: PEPCID PO SCH (14:32)
[2016-10-28] MEDS: FLOMAX PO SCH (14:32)
[2016-10-28] MEDS: FOLVITE PO SCH (14:32)
[2016-10-28 16:00] LABS: Bilirubin,Urine NEG (Negative); Blood,Urine SM (Negative); Ketones,Urine NEG (Negative); Leukocyte Esterase,Urine SM (Negative); Mucus,Urine FEW /HPF; Nitrite,Urine NEG (Negative); Urobilinogen,Urine < 2.0 mg/dL (<2.0)
[2016-10-28] MEDS: PERCOCET 5/325 PO PRN (19:08)
[2016-10-28] MEDS: ROXICODONE PO PRN (19:09)
[2016-10-28] MEDS: HABITROL TD SCH (22:11)
[2016-10-29] MEDS: NACL 0.9% 1000 ML 1,000 ML IV SCH (03:46)
[2016-10-29] MEDS: HEPARIN SUB-Q SCH (05:11)
[2016-10-29] MEDS ORDERED: PROLIXIN HCL PO SCH (10:00)
--- NOTE | 2016-10-29 10:20 | Progress Note ---
Assessment and Plan Mr Gill is a 66 y/o AA man who is followed with a known history of hypertension , CLL on previous chemotherapy, indwelling port, chronic indwelling Merino catheter, and history of ureteral stones who presents for admission to with fever, chills, malaise and anorexia. He is seen with a low-grade fever, an active urinary sediment, urine cultures positive for Klebsiella pneumoniae, and mild neutropenia. Antibiotics: Ceftriaxone 1 g IV daily ( 10/24 -> Fluconazole 100 mg IV/po ( 10/22 - > s/p: Zosyn 4.5 g IV every 8 hour ( 10/22 - 10/24) Conclusions: 1. Klebsiella UTI ( CAUTI) - R/O sepsis - Chronic Merino catheter - Renal ultrasound 10/24 - normal -blood cultures remain negative 2. CLL s/p chemotherapy ( last 08/23/16) - Neutropenia, resolved --ANC is 1.6 3. Hx of nephrolithiasis - s/p 12/28/14 cystoscopy with right ureteral stone basket extraction and right ureteral stent placement 4. Chronic lower extremity edema - Multiple superficial ulcers without secondary infection 5. Thrush, resolved 6) fever, recurrent. Patient is now afebrile Recommendations: -continue ceftriaxone while hospitalized. -fluconazole can be discharged on discharge -cipro 500mg po Q12H x 5 days on discharge -no objection to discharge -discontinue neutropenic precautions Subjective Date of service: 10/29/16 Principal diagnosis: CLL Interval history: Patient is in good spirits, he does not have fevers or chills. Objective - Constitutional Vitals: Selected Entries 10/29/16 10/29/16 00:00 08:00 Temperature 99.2 F 99.7 F H Pulse Rate [ 95 H Left Radial] Respiratory 18 Rate O2 Sat by Pulse 97 Oximetry Blood Pressure 156/88 [Left Arm] Blood Pressure 110 Mean [Left Arm] General appearance: Present: no acute distress, well-nourished - EENT Eyes: PERRL, EOM intact, no scleral icterus, no conjunctival injection ENT: hearing intact, poor dentition - Neck Neck: supple, normal ROM - Respiratory Respiratory: bilateral: CTA - Breasts Breasts: deferred - Cardiovascular Rhythm: regular Heart Sounds: Present: S1 & S2 Extremities: no ischemia, No edema - Gastrointestinal General gastrointestinal: Present: soft, non-tender, normal bowel sounds Rectal Exam: deferred - Genitourinary Male genitourinary: deferred - Integumentary Integumentary: clear, warm, dry - Musculoskeletal Musculoskeletal: generalized weakness - Neurologic Neurologic: moves all extremities - Labs CBC & Chem 7: 10/28/16 10:47 10/28/16 10:47 Labs: Microbiology 10/22/16 15:00 Urine,Clean Catch Urine Culture - Final Klebsiella Pneumoniae 10/28/16 10:47 Peripheral/Venous Blood Culture - Preliminary Culture in Progress 10/28/16 10:47 Peripheral/Venous Blood Culture - Preliminary Culture in Progress Laboratory Tests 10/23/16 10/28/16 10/28/16 21:29 10:47 10:47 WBC 2.2 L Seg Neutrophils # Man 1.6 L Creatinine 0.7 L Estimated GFR > 60 IgG 413 L
[2016-10-29] MEDS: DIFLUCAN PO SCH (10:52)
[2016-10-29] MEDS: COREG PO SCH (10:52)
[2016-10-29] MEDS: COLACE PO SCH (10:52)
[2016-10-29] MEDS: ROCEPHIN/NS 1 GM/50 ML 1 GM/50 ML BAG IV SCH (10:52)
--- NOTE | 2016-10-29 10:52 | Discharge Summary ---
Providers - Providers Date of Admission: 10/22/16 16:48 Date of discharge: 10/29/16 Attending physician: ZACHARY GONZALEZ 10/22/16 18:32 Consult to Physician [CONS] Routine Consulting Provider: DEYA RICHARD Reason For Exam: CLL, leukopenia Place consult to:: Amy HERNÁNDEZ Notified:: office Phone number called:: Was contact made?: Yes If yes, spoke with:: liliana Time called:: 14:36 10/22/16 18:34 Consult to Dietitian/Nutrition [CONS] Routine Physician Instructions: Reason For Exam: Reason for Consult: Malnutrition 10/23/16 14:26 Consult to Physician [CONS] Routine Consulting Provider: JENI KEE Reason For Exam: complicated UTI Place consult to:: Dr. Kee Notified:: office Phone number called:: Was contact made?: Yes If yes, spoke with:: elijah Time called:: 14:40 10/23/16 15:26 Consult to Wound/ET Nurse [CONS] Routine Reason For Exam: perfecto le swollen with blisters,(some open,some intac 10/24/16 10:13 Physical Therapy Evaluation and Treat [CONS] Routine Comment: Reason For Exam: weakness 10/25/16 09:15 Consult to Physician [CONS] Routine Consulting Provider: LEAH LOMAX Reason For Exam: Complicated UTI, indwelling padgett Place consult to:: Dr. Lomax Primary care physician: MOBILE UI DESIGNER Hospitalization Condition: Good Hospital course: Patient is 66-year-old with history of CLL on chemotherapy. He presents with generalized weakness, fever, chills, difficulty ambulation. He had indwelling Padgett catheter. In emergency department he had a temperature of 102.5 , wbc of 2.3. Urinalysis showed a urinary tract infection. He was therefore diagnosed with complicated urinary tract infection , was started on IV fluids, Zosyn iv and admitted. He was evaluated by ID physician, urologist and oncologist. Urine culture eventually grew Klebsiella pneumonia, and he was started on Rocephin IV and Zosyn discontinued. For oral thrush, he was put on Fluconazone. Patient was evaluated by physical therapy and subacute rehabilitation recommended. Case management was consulted. He improved slowly, fever subsided , and he was subsequently discharged to SNF on 10/29/16. Total time spent on discharge, 40 minutes Disposition: DC/TX SNF W [facility] CERT - Discharge Diagnoses (1) Sepsis Status: Acute Qualifiers: Sepsis type: S (2) Fever Status: Acute Qualifiers: Fever type: unspecified Encounter type: E Qualified Code(s): R50.9 - Fever, unspecified (3) Oral candidiasis Status: Acute (4) UTI (urinary tract infection) Status: Acute Qualifiers: Urinary tract infection type: U Hematuria presence: H Indwelling urinary catheter type: I Encounter type: E (5) Chronic lymphocytic leukemia (CLL), B-cell Status: Chronic Qualifiers: Leukemia Active/Remission status: L (6) Leukopenia Status: Chronic Qualifiers: Leukopenia type: L Neutropenia type: secondary to cancer chemotherapy Qualified Code(s): D70.1 - Agranulocytosis secondary to cancer chemotherapy Core Measure Documentation - Palliative Care Palliative Care/ Comfort Measures: Not Applicable - Core Measures Any of the following diagnoses?: none Exam - Physical Exam Narrative exam: Gen appearance: not in acute distress, HEENT: Normocephalic, atraumatic Neck : supple, no JVD Lungs: Clear to auscultation bilaterally, no crackles, no wheezes. Heart : S1 and S2 regular, no murmurs rubs or gallop, Abdomen: soft non-tender, non-distended, normal bowel sounds Extremities: No edema no clubbing or cyanosis, leg blisters and ulcer covered with dressing Neuro :awake alert oriented, no focal signs Psych :appropriate mood : Indwelling Padgett catheter - Constitutional Vitals: Temp Pulse Resp BP Pulse Ox 99.7 F H 95 H 18 156/88 97 10/29/16 08:00 10/29/16 08:00 10/29/16 08:00 10/29/16 08:00 10/29/16 08:00 Plan Activity: advance as tolerated Diet: low salt Additional Instructions: 1.Follow up with Physician at SNF in 3-5 days. 2.Follow up with Dr. Scott in 3 weeks. Follow up with: PRIMARY CAREMD [Primary Care Provider] - 3-5 Days Prescriptions: Ciprofloxacin [Ciprofloxacin ORAL LIQ] 500 mg PO Q12H #10 ml Docusate Sodium [Colace CAP] 100 mg PO BID #60 capsule Famotidine [Pepcid] 20 mg PO BID #30 tablet Oxycodone HCl/Acetaminophen [Percocet 10/325 mg] 1 each PO Q4H PRN #12 tablet PRN Reason: Pain
[2016-10-29] MEDS: PROSCAR PO SCH (10:53)
[2016-10-29] MEDS: FLOMAX PO SCH (10:53)
[2016-10-29] MEDS: PEPCID PO SCH (10:53)
[2016-10-29] MEDS: FOLVITE PO SCH (10:53)
[2016-10-29] MEDS: PERCOCET 5/325 PO PRN (10:54)
[2016-10-29] MEDS: ROXICODONE PO PRN (10:54)
[2016-10-29 13:25] VITALS: BP 102/59
== END 2016-10-29 14:55 | disposition home health service (06) | DRG 871 ==
LOC: ED 12:33 → 3A 16:48
PROVIDERS: ADMIT Internal Medicine; ATTEND Internal Medicine
DX: A41.9 Sepsis, unspecified organism (principal); E43 Unspecified severe protein-calorie malnutrition; D61.810 Antineoplastic chemotherapy induced pancytopenia; N39.0 Urinary tract infection, site not specified; B37.0 Candidal stomatitis; C91.11 Chronic lymphocytic leukemia of B-cell type in remission; L97.909 Non-pressure chronic ulcer of unspecified part of unspecified lower leg with unspecified severity; F17.210 Nicotine dependence, cigarettes, uncomplicated; N40.0 Benign prostatic hyperplasia without lower urinary tract symptoms; M51.16 Intervertebral disc disorders with radiculopathy, lumbar region; D64.9 Anemia, unspecified; B96.1 Klebsiella pneumoniae [K. pneumoniae] as the cause of diseases classified elsewhere; Z68.27 Body mass index [BMI] 27.0-27.9, adult; Z88.8 Allergy status to other drugs, medicaments and biological substances; Z88.5 Allergy status to narcotic agent; Z91.010 Allergy to peanuts
CPT/HCPCS: 36415; 71010; 76770; 80048; 80053; 81001; 82140; 82607; 82728; 82747; 82784; 82805; 83010; 83550; 85007; 85025; 85027; 85045; 85610; 86880; 87040; 87076; 87086; 87186; 87400; 93005; 93010; 96365; 99406; J0692; J0696; J1450; J1644; J2543; J7030

== ENCOUNTER 2016-11-19 08:24 | Day surgery (SDC) | payer MEDICARE ==
[2016-11-19] MEDS ORDERED: TYLENOL PO ONE ×2 (08:58→14:53)
[2016-11-19] MEDS ORDERED: BENADRYL PO ONE ×2 (08:59→14:53)
[2016-11-19] MEDS ORDERED: NACL 0.9% 250ML 250 ML IV ONE (08:59)
[2016-11-19 09:25] LABS: Hemoglobin 6.2 gm/dl (11.8-15.2)
[2016-11-19 09:27] LABS: Hematocrit 19.6 % (35.5-45.6)
[2016-11-19 19:50] VITALS: BP 122/78
== END 2016-11-19 21:18 | disposition other institution (70) ==
LOC: OPU 08:24
PROVIDERS: ATTEND Internal Medicine Hematology & Oncology
DX: D64.9 Anemia, unspecified (principal)
CPT/HCPCS: 36415; 36430; 85014; 85018; 86850; 86900; 86901; 86920; J7050; P9016

== ENCOUNTER 2016-11-20 22:56 | Emergency (ER) | payer MEDICARE ==
[2016-11-20] MEDS ORDERED: TYLENOL PO ONE (23:26)
[2016-11-20] MEDS ORDERED: NACL 0.9% 1000 ML 1,000 ML IV ONE (23:26)
--- NOTE | 2016-11-21 | Emergency Department Report ---
ED Fever HPI - General Chief Complaint: Fever Stated Complaint: FEVER Time Seen by Provider: 11/20/16 23:25 Source: patient Exam Limitations: no limitations - History of Present Illness Initial Comments: Patient presents to the ED today due to fever of 103 at his skilled care facility. Patient was in the ED most of the day yesterday for blood transfusion. He does get intermittent transfusions due to leukemia. He has CLL. He is currently undergoing chemotherapy treatments for this. Patient did have UTI with urosepsis at the beginning of October. Because of the profound weakness resulting from this infection he is in nursing at this time for rehabilitation. Patient does indicate mild sore throat since yesterday. He denies headache he denies cough or congestion. He denies any abdominal pain. He denies diarrhea. Last given Tylenol just prior to arrival. Timing/Duration: this afternoon Fever Severity/Quality: greater than 102 F Fever Therapy LOAN COORDINATOR: Tylenol Associated Symptoms: sore throat, weakness (ongoing x 1 month) ED Review of Systems ROS: Stated complaint: FEVER Other details as noted in HPI Constitutional: diaphoresis, fever, weakness. denies: chills Eyes: denies: eye pain, eye discharge, vision change ENT: throat pain. denies: ear pain Respiratory: denies: cough, shortness of breath, wheezing Cardiovascular: denies: chest pain, palpitations Endocrine: no symptoms reported Gastrointestinal: denies: abdominal pain, nausea, diarrhea Genitourinary: denies: urgency, dysuria Musculoskeletal: back pain (chronic). denies: joint swelling, arthralgia Skin: denies: rash, lesions Neurological: denies: headache, weakness, paresthesias Psychiatric: denies: anxiety, depression Hematological/Lymphatic: denies: easy bleeding, easy bruising ED Past Medical Hx - Past Medical History Hx Hypertension: Yes Hx Congestive Heart Failure: (luekemia) Hx GERD: Yes Hx of Cancer: Yes Hx Psychiatric Treatment: Yes (schizo) Additional medical history: leukemia (on chemotherapy) - Surgical History Past Surgical History?: Yes Additional Surgical History: BACK X 3 - Social History Smoking Status: Current Some Day Smoker - Medications Home Medications: Home Medications Medication Instructions Recorded Confirmed Last Taken Type Carvedilol 12.5 mg PO BID 05/28/13 11/19/16 11/18/16 History amLODIPine [Norvasc] 5 mg PO DAILY 05/28/13 11/19/16 11/18/16 History fluPHENAZine (NF) [Prolixin (Nf)] 5 mg PO DAILY 05/28/13 11/19/16 11/18/16 History Tamsulosin [Flomax] 0.4 mg PO QDAY #30 cap 05/31/16 11/19/16 11/18/16 Rx hydrALAZINE [Apresoline TAB] 50 mg PO BID 10/22/16 11/19/16 11/18/16 History 50mg Famotidine [Pepcid] 20 mg PO BID #30 tablet 10/29/16 11/19/16 11/18/16 Rx Oxycodone HCl/Acetaminophen 1 each PO Q4H PRN #12 tablet 10/29/16 11/19/1611/18 Rx [Percocet 10/325 mg] ED Physical Exam - General Limitations: Physical Limitation General appearance: alert, other (unwell appearing) - Head Head exam: Present: atraumatic, normocephalic - Eye Eye exam: Present: normal appearance, PERRL, EOMI Pupils: Present: other (R upper lid with mild edema-chronic) - ENT ENT exam: Present: normal orophraynx (no erythema or exudates noted), mucous membranes moist - Neck Neck exam: Present: normal inspection, full ROM. Absent: tenderness, lymphadenopathy - Respiratory Respiratory exam: Present: normal lung sounds bilaterally. Absent: respiratory distress, rales, rhonchi - Cardiovascular Cardiovascular Exam: Present: regular rate, normal rhythm. Absent: systolic murmur, diastolic murmur, rubs, gallop - GI/Abdominal GI/Abdominal exam: Present: soft, normal bowel sounds. Absent: tenderness, guarding - Rectal Rectal exam: Present: deferred - Extremities Exam Extremities exam: Present: normal inspection, pedal edema (R 1+ L nml). Absent : tenderness, calf tenderness - Back Exam Back exam: Present: normal inspection, vertebral tenderness (mild in lower lumbar region). Absent: paraspinal tenderness - Neurological Exam Neurological exam: Present: alert, oriented X3, other (generalized weakness) - Psychiatric Psychiatric exam: Present: normal affect, normal mood - Skin Skin exam: Present: warm, dry, intact, normal color. Absent: rash ED Course Vital Signs 11/20/16 11/20/16 11/20/16 23:11 23:30 23:57 Temperature 103 F H Pulse Rate 100 H 95 H Respiratory 20 20 Rate Blood Pressure 112/73 Blood Pressure 104/71 [Right] O2 Sat by Pulse 99 98 99 Oximetry 11/21/16 11/21/16 11/21/16 00:00 00:11 00:21 Temperature Pulse Rate 88 89 90 Respiratory 26 H 17 20 Rate Blood Pressure 107/68 107/68 107/68 Blood Pressure [Right] O2 Sat by Pulse 99 99 Oximetry 11/21/16 11/21/16 11/21/16 00:25 00:30 00:41 Temperature Pulse Rate 87 89 85 Respiratory 27 H 17 22 Rate Blood Pressure 107/68 109/73 109/73 Blood Pressure [Right] O2 Sat by Pulse 100 100 Oximetry 11/21/16 11/21/16 11/21/16 00:51 01:00 01:11 Temperature Pulse Rate 85 84 86 Respiratory 23 19 21 Rate Blood Pressure 115/70 122/75 122/75 Blood Pressure [Right] O2 Sat by Pulse 100 99 100 Oximetry 11/21/16 11/21/16 11/21/16 01:21 01:30 01:41 Temperature Pulse Rate 80 83 84 Respiratory 17 19 20 Rate Blood Pressure 122/78 130/78 130/78 Blood Pressure [Right] O2 Sat by Pulse 100 99 100 Oximetry 11/21/16 11/21/16 11/21/16 01:51 02:00 02:11 Temperature Pulse Rate 92 H 85 84 Respiratory 15 9 L 19 Rate Blood Pressure 133/79 127/79 127/79 Blood Pressure [Right] O2 Sat by Pulse 100 99 100 Oximetry 11/21/16 03:00 Temperature 100.1 F H Pulse Rate 91 H Respiratory 18 Rate Blood Pressure Blood Pressure 125/89 [Right] O2 Sat by Pulse 100 Oximetry - Reevaluation(s) Reevaluation #1: 11/21/16 05:14 Labs are noted. Patient noted to be mild leukopenic. He does demonstrate 16% bandemia. This is concerning. He did defervesce while here. Subjectively he feels much improved after IV fluids. Hemodynamically he has heart rate has been running around 100. His blood pressure has been adequate. I did speak with the primary physician of the patient regarding admission physician felt this was appropriate given his somewhat fragile state. I do not have an obvious source for infection here. I am concerned about this patient. and patient are very concerned about starting his chemotherapy treatment on Friday as planned. I do not feel this is in his best interest if he continues to have fever. Family do not want to appreciate this. He wished to sign AMA at this time. I obviously cannot stop this. I did indicate that I felt taking chemotherapy in a weakened state with having fevers with possible infectious etiology would be life-threatening however. ED Medical Decision Making - Lab Data Result diagrams: 11/20/16 23:49 11/20/16 23:49 - Radiology Data interpreted by me: No acute pathology Critical care attestation.: If time is entered above; I have spent that time in minutes in the direct care of this critically ill patient, excluding procedure time. ED Disposition Clinical Impression: Bandemia, CLL (chronic lymphocytic leukemia) Fever Qualifiers: Fever type: unspecified Qualified Code(s): R50.9 - Fever, unspecified Disposition: LEFT AGAINST MEDICAL ADVICE Is pt being admited?: Yes Does the pt Need Aspirin: No Condition: Stable Referrals: PRIMARY CARE [Primary Care Provider] - 3-5 Days Time of Disposition: 03:22
[2016-11-21 00:01] LABS: Hematocrit 25.2 % (35.5-45.6); Hemoglobin 8.2 gm/dl (11.8-15.2); Mean Corpuscular HGB Conc 33 % (32-34); Mean Corpuscular Hemoglobin 27 pg (28-32); Mean Corpuscular Volume 82 fl (84-94); Platelet Count 527 K/mm3 (140-440); Red Blood Count 3.06 M/mm3 (3.65-5.03); Red Cell Distribution Width 18.5 % (13.2-15.2); White Blood Count 2.5 K/mm3 (4.5-11.0)
[2016-11-21 00:16] LABS: Alanine Aminotransferase 56 units/L (7-56); Albumin 2.4 g/dL (3.9-5); Albumin/Globulin Ratio 0.8 %; Alkaline Phosphatase 131 units/L (35-129); Anion Gap 18 mmol/L; Bilirubin,Total 0.7 mg/dL (0.1-1.2); Blood Urea Nitrogen 9 mg/dL (9-20); Calcium 7.9 mg/dL (8.4-10.2); Carbon Dioxide 24 mmol/L (22-30); Chloride 96.4 mmol/L (98-107); Glucose 99 mg/dL (75-100); Potassium 3.9 mmol/L (3.6-5.0); Sodium 134 mmol/L (137-145); Total Protein 5.3 g/dL (6.3-8.2)
[2016-11-21 00:46] LABS: Bilirubin,Urine NEG (Negative); Blood,Urine NEG (Negative); Ketones,Urine NEG (Negative); Leukocyte Esterase,Urine SM (Negative); Nitrite,Urine NEG (Negative); Protein,Urine <15 mg/dL mg/dL (Negative)
[2016-11-21 01:02] LABS: Basophils % (Manual) 0 % (0.0-1.8); Blastocytes % (Manual) 0 %; Eosinophils % (Manual) 0 % (0.0-4.3)
[2016-11-21 01:03] LABS: Anisocytosis 1+; Dohle Bodies Rare; Ovalocytes Few; Poikilocytosis 1+; Schistocytes Rare; Tear Drop Cells Rare
[2016-11-21 01:04] LABS: Diff Status Complete; Large Platelets Rare; Platelet Estimate Consistent w Auto
[2016-11-21 06:58] VITALS: BP 126/77
--- NOTE | 2016-11-21 07:04 | Admit Criteria Form ---
Admission Criteria Documentation: FEBRILE ILLNESS, WITHOUT FOCAL INFECTION Clinical Indications for Admission to Inpatient Care (Place 'X' for any and all applicable criteria): Admission is indicated for ANY ONE of the following (1)(2)(3): [ ] I. Bacteremia [ ]II. Suspected or identified specific infection requiring hospitalization (eg, meningitis, endocarditis) [ ]III. Hemodynamic instability [ ]IV. Altered mental status [ ]V. Failure or unavailability of outpatient antimicrobial treatment [ ]. Hypoxemia [ ]VII. Seizures [X]VIII. High-risk febrile neutropenia [ ]IX. Need for parenteral antibiotic in patient who is likely to abuse vascular access device (eg, injection drug user) [A](7) [ ]X. Temperature greater than 104.9 degrees F (40.5 degrees C) (oral) [ ]XI. Inpatient admission required rather than observation care because of ANY ONE of the following: [ ]a) Specific infection identified that is too severe for outpatient treatment or observation care trial [ ]b) Metabolic disorder (eg, hypoglycemia, hyperglycemia, metabolic acidosis) that is severe or persistent [ ]c) Temperature greater than 103.1 degrees F (39.5 degrees C) ( oral) that is not responsive to observation care treatment [ ]d) IV fluid to replace significant ongoing (eg, for over 24 hours) losses (> 3 L/m2 per day) [ ]e) Supplemental oxygen or respiratory treatments for over 24 hours that is performable only in acute inpatient setting [ ]f) Parenteral nutrition regimen need that must be implemented on inpatient basis [ ]g) Strict or protective (eg, laminar flow) isolation [X ]h) Other condition, treatment or monitoring requiring inpatient admission Extended stay beyond goal length of stay may be needed for(1)(3) [ ]a) Sepsis or septic shock(22) [ ]b) Positive blood cultures [ ]c) Insufficient oral intake [ ]d) High-risk febrile neutropenia(29)(30) [ ]e) Continued fever and clinical instability [ ]f) Clinically active comorbid illness (e.g,heart failure, renal failure , diabetes) The original [facility] content created by [facility] [employer] has been revised. The portions of the content which have been revised are identified through the use of italic text or in bold, and [facility] has neither reviewed nor approved the modified material. All other unmodified content is copyright [facility]. Please see references footnoted in the original [facility] edition 2016
--- NOTE | 2016-11-21 08:59 | XRay Report ---
AP CHEST :11/20/16 22:56:00 CLINICAL: Fever and sepsis. COMPARISON:10/22/16 FINDINGS: Normal heart and pulmonary vasculature. A left [id number] tip is in the distal left brachycephalic vein at the junction with the SVC. Mild left basal subsegmental atelectasis. The lungs are otherwise clear. No air space disease. No pleural effusion. The bones and soft tissues are normal. IMPRESSION: Mild left lower lobe subsegmental atelectasis. No pneumonia.
== END 2016-11-21 06:30 | disposition left against medical advice (07) ==
LOC: ED 22:56
DX: C91.10 Chronic lymphocytic leukemia of B-cell type not having achieved remission (principal); D72.825 Bandemia; R50.9 Fever, unspecified; I10 Essential (primary) hypertension; K21.9 Gastro-esophageal reflux disease without esophagitis; F20.9 Schizophrenia, unspecified; Z72.0 Tobacco use; Z85.9 Personal history of malignant neoplasm, unspecified
CPT/HCPCS: 36415; 71010; 80053; 81001; 82140; 85007; 85025; 87040; 87400; 96360; 96361; 99285; J7030

== ENCOUNTER 2016-12-31 09:41 | Day surgery (SDC) | payer MEDICARE ==
[2016-12-31] MEDS ORDERED: TYLENOL PO ONE (09:53)
[2016-12-31] MEDS ORDERED: NACL 0.9% 250ML 250 ML IV ONE (09:54)
[2016-12-31] MEDS ORDERED: BENADRYL IV ONE (09:54)
[2016-12-31 10:05] LABS: Hematocrit 21.5 % (35.5-45.6); Hemoglobin 6.7 gm/dl (11.8-15.2)
[2016-12-31 14:43] VITALS: BP 105/63
== END 2016-12-31 16:00 ==
LOC: OPU 09:41
PROVIDERS: ATTEND Internal Medicine Hematology & Oncology
DX: D64.9 Anemia, unspecified (principal)
CPT/HCPCS: 36415; 36430; 85014; 85018; 86850; 86900; 86901; 86920; 96374; J1200; J7050; P9016